=== PATIENT | male | born 1955 | race African-American/Black ===

== ENCOUNTER → 2017-01-10 | Outpatient (CLI) | payer MEDICARE ==
[~2017-01-10] MED LIST: ASPI-864; DICL75TA5 PO; DIPH25CA83 PO; FAMO40TA35 PO; GABA-290 PO; GLIP10TA72; HYDR-523 PO; INSU100C3 SQ; INSU3INS6 SUBCUT; NEBI5TAB3 PO; P20 PO; SIMV40TA5 PO; SITA1TAB8 PO; TRAM50TA3 PO
== END | disposition home or self-care (01) ==
LOC: RAD 12:15
PROVIDERS: ATTEND Neurological Surgery
DX: M54.9 Dorsalgia, unspecified (principal)
CPT/HCPCS: 72114

== ENCOUNTER 2017-06-27 15:26 | Inpatient (IN) | payer MEDICARE, MEDICAID ==
[~2017-06-27] VITALS: Ht 203.2 cm; Wt 134.7 kg
[~2017-06-27 15:26] MED LIST changes: -FAMO40TA35 PO; +FAMO40TA70 PO; +GLIP10TA3; -GLIP10TA72; +IOHEXOL-350 100 ML BOTTLE ONE; +SODIUM CHLORIDE 0.9% 10ML VIAL ONE
[2017-06-27] MEDS ORDERED: ALBUTEROL (0.083%) 2.5MG/3ML NEB HHN STA (17:32)
[2017-06-27] MEDS ORDERED: NITROGLYCERIN OINT 1GM/INCH UDPKT TD ONE (17:45)
[2017-06-27] MEDS ORDERED: FUROSEMIDE 40MG/4ML VIAL IV ONE (17:45)
[2017-06-27] MEDS ORDERED: ASPIRIN 81MG TABLET PO ONE (17:45)
[2017-06-27 17:49] LABS: BASOPHILS % 0.7 % (0.0-2.0); EOSINOPHILS % 1.6 % (0.0-5.0); HEMATOCRIT. 41.7 % (42.0-52.0); HEMOGLOBIN. 13.8 g/dL (14.0-18.0); LYMPHOCYTES % 24.9 % (20.0-50.0); MEAN CORPUSCULAR HEMOGLOBIN 27.9 pg (28.0-32.0); MEAN CORPUSCULAR VOLUME 84.4 fL (80.0-94.0); MEAN PLATELET VOLUME 9.2 fl (7.4-10.4); MONOCYTES % 7.2 % (2.0-8.0); NEUTROPHILS % 65.6 % (40.0-76.0); PLATELET 200 x1000/uL (130-400); RED BLOOD CELL COUNT 4.94 mill/uL (4.7-6.1); RED CELL DISTRIBUTION WIDTH 15.3 % (11.6-14.6)
[2017-06-27 17:57] LABS: CHLORIDE 103 mEq/L (98-107)
[2017-06-27 17:59] LABS: D-DIMER 0.93 mg/L FEU (<0.50); PROTHROMBIN TIME 10.7 sec (9.4-11.6)
[2017-06-27 18:01] LABS: CARBON DIOXIDE 28 mEq/L (21-32)
[2017-06-27 18:03] LABS: ETHANOL BLOOD < 10 mg/dL
[2017-06-27 18:09] LABS: TROPONIN I < 0.02 ng/mL (0.00-0.04)
[2017-06-27 19:00] LABS: *AMPHETAMINES SCREEN URINE NEGATIVE (NEGATIVE); *BARBITURATES SCREEN URINE NEGATIVE (NEGATIVE); *BENZODIAZEPINES SCREEN URINE NEGATIVE (NEGATIVE); *COCAINE SCREEN URINE NEGATIVE (NEGATIVE); CANNABINOID URINE SCREEN NEGATIVE (NEGATIVE); METHADONE URINE SCREEN NEGATIVE (NEGATIVE); OPIATES URINE SCREEN PRESUMTIVE POSITIVE (NEGATIVE); PHENCYCLIDINE URINE SCREEN NEGATIVE (NEGATIVE)
[2017-06-27] MEDS ORDERED: LINA5TAB PO (23:51)
[2017-06-27 23:53] VITALS: BP 115/76
[2017-06-28] VITALS (12 sets, daily range): BP systolic 90–154; BP diastolic 40–97
[2017-06-28] MEDS ORDERED: MAGNESIUM 2 G PREMIX 50 ML IV PRN (00:15)
[2017-06-28] MEDS ORDERED: TRAMADOL 50MG TABLET PO PRN (00:15)
[2017-06-28] MEDS ORDERED: HYDROCODONE/ACETAMINOPHEN 5/325MG TABLET PO PRN (00:15)
[2017-06-28] MEDS ORDERED: DEXTROSE 50% WATER 50ML SYRINGE IV PRN (03:15)
[2017-06-28] MEDS: BLOOD SUGAR DIAGNOSTIC STRIP TEST SCH ×4 (07:02→21:33)
[2017-06-28] MEDS: INSULIN LISPRO 100 UNITS/ML SUBCUT SCH ×4 (08:33→21:29)
[2017-06-28] MEDS: ASPIRIN 81MG EC TABLET PO SCH (08:34)
[2017-06-28] MEDS: ENOXAPARIN 40MG/0.4ML SYR SUBCUT SCH ×2 (08:35→21:29)
[2017-06-28] MEDS: NEBIVOLOL HCL 5 MG TABLET PO SCH (08:35)
[2017-06-28] MEDS ORDERED: MEDICATION NOT ON FORMULARY EA (Gabapentin 1,200 MG) PO SCH (09:00)
[2017-06-28] MEDS: GABAPENTIN 400MG CAPSULE PO SCH ×2 (10:20→16:48)
[2017-06-28] MEDS: DICLOFENAC SODIUM 75MG DR (EC) TABLET PO SCH ×2 (10:20→16:48)
[2017-06-28] MEDS: LINAGLIPTIN 5MG TABLET PO SCH (10:20)
[2017-06-28] MEDS ORDERED: IPRATROPIUM/ALBUTEROL 0.5-3(2.5)MG/3ML NEB HHN PRN (12:30)
[2017-06-28] MEDS ORDERED: [UNRECOGNIZED DRUG - OTHER] SUBCUT SCH (17:00)
[2017-06-28] MEDS ORDERED: INSULIN GLARGINE HUM REC ANLOG 24 UNIT SUBCUT SCH (17:00)
[2017-06-28] MEDS ORDERED: MEDICATION NOT ON FORMULARY EA (Simvastatin 40 MG) PO SCH (18:00)
[2017-06-28] MEDS: ATORVASTATIN CALCIUM 20MG TABLET PO SCH (21:29)
[2017-06-28] MEDS ORDERED: INSULIN DETEMIR UD 100 UNITS/ML SYR SUBCUT SCH ×2 (22:00)
[2017-06-29] VITALS (11 sets, daily range): BP systolic 107–154; BP diastolic 44–88
[2017-06-29] MEDS: BLOOD SUGAR DIAGNOSTIC STRIP TEST SCH ×4 (06:27→21:07)
[2017-06-29] MEDS: GLIMEPIRIDE 2MG TABLET PO SCH ×2 (06:31→17:02)
[2017-06-29] MEDS: INSULIN LISPRO 100 UNITS/ML SUBCUT SCH ×7 (06:33→21:06)
[2017-06-29] MEDS: NEBIVOLOL HCL 5 MG TABLET PO SCH (08:27)
[2017-06-29] MEDS: DICLOFENAC SODIUM 75MG DR (EC) TABLET PO SCH ×2 (08:27→17:00)
[2017-06-29] MEDS: FUROSEMIDE 40MG/4ML VIAL IVP SCH (08:27)
[2017-06-29] MEDS: LINAGLIPTIN 5MG TABLET PO SCH (08:27)
[2017-06-29] MEDS: ASPIRIN 81MG EC TABLET PO SCH (08:27)
[2017-06-29] MEDS: ENOXAPARIN 40MG/0.4ML SYR SUBCUT SCH ×2 (08:28→21:05)
[2017-06-29] MEDS: GABAPENTIN 400MG CAPSULE PO SCH ×2 (08:28→17:00)
[2017-06-29] MEDS ORDERED: INSULIN DETEMIR UD 100 UNITS/ML SYR SUBCUT NR (10:00)
[2017-06-29] MEDS ORDERED: CLONIDINE 0.2MG TABLET PO PRN ×2 (10:45)
[2017-06-29] MEDS ORDERED: REGADENOSON 0.4 MG/5 ML IV SCH (10:45)
[2017-06-29 11:35] LABS: BASOPHILS % 0.6 % (0.0-2.0); EOSINOPHILS % 2.2 % (0.0-5.0); HEMATOCRIT. 43.6 % (42.0-52.0); HEMOGLOBIN. 14.8 g/dL (14.0-18.0); LYMPHOCYTES % 29.3 % (20.0-50.0); MEAN CORPUSCULAR VOLUME 85.5 fL (80.0-94.0); MEAN PLATELET VOLUME 8.8 fl (7.4-10.4); MONOCYTES % 7.9 % (2.0-8.0); PLATELET 198 x1000/uL (130-400)
[2017-06-29 11:39] LABS: CARBON DIOXIDE 28 mEq/L (21-32); CHLORIDE 99 mEq/L (98-107); CREATINE KINASE 202 IU/L (39-308); CREATINE KINASE MB FRACTION 1.8 ng/mL (0.5-3.6); TROPONIN I < 0.02 ng/mL (0.00-0.04)
[2017-06-29] MEDS: ATORVASTATIN CALCIUM 20MG TABLET PO SCH (21:05)
[2017-06-29] MEDS ORDERED: INSULIN DETEMIR UD 100 UNITS/ML SYR SUBCUT SCH (22:00)
[2017-06-30] VITALS (9 sets, daily range): BP systolic 114–146; BP diastolic 54–83
[2017-06-30] MEDS: INSULIN LISPRO 100 UNITS/ML SUBCUT SCH ×4 (06:13→12:16)
[2017-06-30] MEDS: GLIMEPIRIDE 2MG TABLET PO SCH (06:14)
[2017-06-30] MEDS: BLOOD SUGAR DIAGNOSTIC STRIP TEST SCH ×2 (06:14→12:13)
[2017-06-30 06:27] LABS: BASOPHILS % 0.5 % (0.0-2.0); EOSINOPHILS % 2.8 % (0.0-5.0); HEMATOCRIT. 41.7 % (42.0-52.0); HEMOGLOBIN. 13.9 g/dL (14.0-18.0); LYMPHOCYTES % 31.2 % (20.0-50.0); MEAN CORPUSCULAR HEMOGLOBIN 28.3 pg (28.0-32.0); MEAN CORPUSCULAR VOLUME 84.9 fL (80.0-94.0); MEAN PLATELET VOLUME 8.6 fl (7.4-10.4); MONOCYTES % 8.6 % (2.0-8.0); NEUTROPHILS % 56.9 % (40.0-76.0); PLATELET 212 x1000/uL (130-400); RED BLOOD CELL COUNT 4.91 mill/uL (4.7-6.1)
[2017-06-30 06:50] LABS: CARBON DIOXIDE 28 mEq/L (21-32); CHLORIDE 98 mEq/L (98-107); CREATINE KINASE 157 IU/L (39-308); HDL CHOLESTEROL 37 mg/dL (40-59); LDL CHOLESTEROL 116 mg/dL (5-100)
[2017-06-30 06:58] LABS: CREATINE KINASE MB FRACTION 1.7 ng/mL (0.5-3.6); TROPONIN I < 0.02 ng/mL (0.00-0.04)
[2017-06-30] MEDS ORDERED: REGADENOSON 0.4 MG/5 ML IV ONE (09:22)
[2017-06-30] MEDS ORDERED: INSULIN DETEMIR UD 100 UNITS/ML SYR SUBCUT SCH ×2 (10:00→22:00)
[2017-06-30] MEDS: FUROSEMIDE 40MG/4ML VIAL IVP SCH (10:36)
[2017-06-30] MEDS: NEBIVOLOL HCL 5 MG TABLET PO SCH (10:37)
[2017-06-30] MEDS: DICLOFENAC SODIUM 75MG DR (EC) TABLET PO SCH (10:37)
[2017-06-30] MEDS: ASPIRIN 81MG EC TABLET PO SCH (10:37)
[2017-06-30] MEDS: GABAPENTIN 400MG CAPSULE PO SCH (10:37)
[2017-06-30] MEDS: ENOXAPARIN 40MG/0.4ML SYR SUBCUT SCH (10:37)
[2017-06-30] MEDS: LINAGLIPTIN 5MG TABLET PO SCH (10:37)
[2017-06-30 13:11] LABS: *CREATININE RANDOM URINE 172.3 mg/dL (Not Estab.); MICROALBUMIN RANDOM URINE 52.5 ug/mL (Not Estab.)
== END 2017-06-30 14:50 | disposition home or self-care (01) | DRG 291 ==
LOC: ER 15:26 → EDBEDREQ 17:38 → 3WST 20:58 → ENRESERV 21:12 → EDBEDREQ 21:14 → ER 21:19
PROVIDERS: ADMIT Internal Medicine; ATTEND Internal Medicine
DX: I13.0 Hypertensive heart and chronic kidney disease with heart failure and stage 1 through stage 4 chronic kidney disease, or unspecified chronic kidney disease (principal); J96.00 Acute respiratory failure, unspecified whether with hypoxia or hypercapnia; I50.21 Acute systolic (congestive) heart failure; I42.0 Dilated cardiomyopathy; J44.9 Chronic obstructive pulmonary disease, unspecified; Z83.3 Family history of diabetes mellitus; E11.22 Type 2 diabetes mellitus with diabetic chronic kidney disease; E11.42 Type 2 diabetes mellitus with diabetic polyneuropathy; E66.01 Morbid (severe) obesity due to excess calories; E78.00 Pure hypercholesterolemia, unspecified; E11.65 Type 2 diabetes mellitus with hyperglycemia; G89.4 Chronic pain syndrome; I44.7 Left bundle-branch block, unspecified; I87.2 Venous insufficiency (chronic) (peripheral); N18.9 Chronic kidney disease, unspecified; M13.0 Polyarthritis, unspecified; Z79.4 Long term (current) use of insulin; Z79.84 Long term (current) use of oral hypoglycemic drugs; Z88.8 Allergy status to other drugs, medicaments and biological substances; Z79.82 Long term (current) use of aspirin; Z79.899 Other long term (current) drug therapy; Z98.1 Arthrodesis status; Z68.32 Body mass index [BMI] 32.0-32.9, adult
CPT/HCPCS: 36415; 71010; 71275; 78452; 80048; 80053; 80061; 80305; 82043; 82550; 82553; 82570; 82962; 83036; 83735; 83880; 84443; 84484; 84681; 85025; 85379; 85610; 93005; 93017; 93306; 93970; 96374; 97116; 97162; 97165; 99285; A4216; A9500; G0482; J1650; J1815; J1940; J2785; Q9967

== ENCOUNTER 2017-07-03 07:01 | Emergency (ER) | payer MEDICARE, MEDICAID ==
[~2017-07-03] VITALS: Ht 185.4 cm; Wt 135.0 kg
[~2017-07-03 07:01] MED LIST changes: -IOHEXOL-350 100 ML BOTTLE ONE; +LINA5TAB PO; -SODIUM CHLORIDE 0.9% 10ML VIAL ONE
[2017-07-03 07:41] VITALS: BP 155/84
== END 2017-07-03 11:02 | disposition home or self-care (01) ==
LOC: ER 08:47
DX: E11.42 Type 2 diabetes mellitus with diabetic polyneuropathy (principal); J44.9 Chronic obstructive pulmonary disease, unspecified; I50.9 Heart failure, unspecified; Z98.1 Arthrodesis status; Z79.4 Long term (current) use of insulin; Z88.8 Allergy status to other drugs, medicaments and biological substances
CPT/HCPCS: 82962; 99283

== ENCOUNTER 2018-05-16 14:48 | Inpatient (IN) | payer MEDICARE, MEDICAID ==
[~2018-05-16] VITALS: Ht 185.4 cm; Wt 142.4 kg
[2018-05-16 18:04] LABS: BASOPHILS % 0.7 % (0.0-2.0); EOSINOPHILS % 2.1 % (0.0-5.0); HEMATOCRIT. 40.9 % (42.0-52.0); HEMOGLOBIN. 13.3 g/dL (14.0-18.0); LYMPHOCYTES % 25.4 % (20.0-50.0); MEAN CORPUSCULAR HEMOGLOBIN 27.9 pg (28.0-32.0); MEAN CORPUSCULAR VOLUME 85.8 fL (80.0-94.0); MEAN PLATELET VOLUME 9.5 fl (7.4-10.4); MONOCYTES % 6.5 % (2.0-8.0); NEUTROPHILS % 65.3 % (40.0-76.0); PLATELET 191 x1000/uL (130-400); RED BLOOD CELL COUNT 4.77 mill/uL (4.7-6.1); RED CELL DISTRIBUTION WIDTH 16.3 % (11.6-14.6)
[2018-05-16 18:05] LABS: CHLORIDE 104 mEq/L (98-107)
[2018-05-16 18:06] LABS: INR 1.1
[2018-05-16 18:27] LABS: CLARITY URINE CLEAR (CLEAR); COLOR URINE YELLOW (YELLOW); KETONES URINE NEGATIVE (NEGATIVE); LEUKOCYTE ESTERASE URINE NEGATIVE (NEGATIVE); NITRITE URINE NEGATIVE (NEGATIVE); OCCULT BLOOD URINE NEGATIVE (NEGATIVE); PH URINE 5.5 (4.5-8.0); PROTEIN URINE 2+ (NEGATIVE); SPECIFIC GRAVITY URINE 1.022 (1.005-1.030)
[2018-05-16 18:41] LABS: *AMPHETAMINES SCREEN URINE NEGATIVE (NEGATIVE); *BARBITURATES SCREEN URINE NEGATIVE (NEGATIVE); *BENZODIAZEPINES SCREEN URINE NEGATIVE (NEGATIVE); *COCAINE SCREEN URINE NEGATIVE (NEGATIVE); METHADONE URINE SCREEN NEGATIVE (NEGATIVE)
[2018-05-16 18:42] LABS: CANNABINOID URINE SCREEN NEGATIVE (NEGATIVE); OPIATES URINE SCREEN NEGATIVE (NEGATIVE); PHENCYCLIDINE URINE SCREEN NEGATIVE (NEGATIVE)
[2018-05-17] MEDS ORDERED: MAGNESIUM HYDROXIDE 400MG/5ML 30ML UDC PO PRN (01:15)
[2018-05-17] MEDS ORDERED: ACETAMINOPHEN 325MG TABLET PO PRN (01:15)
[2018-05-17] MEDS ORDERED: MAGNESIUM/ALUMINUM HYDROXIDE/SIMETHICONE 30ML UDC PO PRN (01:15)
[2018-05-17] MEDS ORDERED: CLONIDINE 0.1MG TABLET PO PRN (01:15)
[2018-05-17] MEDS ORDERED: GUAIFENESIN 200MG/10ML SUGAR FREE UDC PO PRN (01:15)
[2018-05-17] MEDS ORDERED: LORAZEPAM 0.5MG TABLET PO PRN (01:15)
[2018-05-17] MEDS ORDERED: ONDANSETRON 4MG ODT PO PRN (01:15)
[2018-05-17] MEDS ORDERED: DEXTROSE 50% WATER 50ML SYRINGE IV PRN (01:15)
[2018-05-17] MEDS ORDERED: IPRATROPIUM/ALBUTEROL 0.5-3(2.5)MG/3ML NEB INH PRN (01:15)
[2018-05-17 04:13] VITALS: BP 167/91
[2018-05-17] MEDS: BLOOD SUGAR DIAGNOSTIC STRIP TEST SCH ×4 (05:56→21:27)
[2018-05-17] MEDS: HYDRALAZINE HCL 25MG TABLET PO SCH ×3 (05:57→21:32)
[2018-05-17] MEDS: SODIUM CHLORIDE 0.9% INJ 3ML FLUSH IVF SCH ×3 (05:57→21:36)
[2018-05-17] MEDS: GLIMEPIRIDE 2MG TABLET PO SCH ×2 (06:00→17:32)
[2018-05-17] MEDS: INSULIN LISPRO 100 UNITS/ML SUBCUT SCH ×4 (07:51→21:35)
[2018-05-17 08:02] VITALS: BP 129/69
[2018-05-17] MEDS: FUROSEMIDE 40MG/4ML VIAL IVP SCH ×2 (08:02→17:32)
[2018-05-17] MEDS: LOSARTAN POTASSIUM 25 MG TABLET PO SCH (08:03)
[2018-05-17] MEDS: ENOXAPARIN 40MG/0.4ML SYR SUBCUT SCH ×2 (08:03→21:32)
[2018-05-17] MEDS: FAMOTIDINE 20MG TABLET PO SCH ×2 (08:03→21:32)
[2018-05-17] MEDS: LINAGLIPTIN 5MG TABLET PO SCH (08:03)
[2018-05-17 11:45] VITALS: BP 152/80
[2018-05-17 16:00] VITALS: BP 139/69
[2018-05-17 20:00] VITALS: BP 147/82
[2018-05-17] MEDS ORDERED: INSULIN GLARGINE UD 100 UNITS/ML SYR SUBCUT SCH ×2 (22:00)
[2018-05-18] VITALS: BP 131/77
[2018-05-18] MEDS: TEMAZEPAM 15MG CAPSULE PO PRN ×2 (03:33→22:03)
[2018-05-18] MEDS: DIPHENHYDRAMINE 50MG/ML VIAL IV PRN ×2 (03:33→22:13)
[2018-05-18] MEDS: INSULIN LISPRO 100 UNITS/ML SUBCUT SCH ×7 (06:18→21:08)
[2018-05-18] MEDS: GLIMEPIRIDE 2MG TABLET PO SCH ×2 (06:20→18:27)
[2018-05-18] MEDS: HYDRALAZINE HCL 25MG TABLET PO SCH ×3 (06:21→21:07)
[2018-05-18] MEDS: BLOOD SUGAR DIAGNOSTIC STRIP TEST SCH ×4 (06:21→21:05)
[2018-05-18] MEDS: SODIUM CHLORIDE 0.9% INJ 3ML FLUSH IVF SCH ×3 (06:21→21:06)
[2018-05-18 07:20] LABS: BASOPHILS % 0.5 % (0.0-2.0); EOSINOPHILS % 2.2 % (0.0-5.0); HEMATOCRIT. 41.4 % (42.0-52.0); HEMOGLOBIN. 13.7 g/dL (14.0-18.0); LYMPHOCYTES % 29.8 % (20.0-50.0); MEAN CORPUSCULAR HEMOGLOBIN 28.1 pg (28.0-32.0); MONOCYTES % 9.3 % (2.0-8.0); NEUTROPHILS % 58.2 % (40.0-76.0); PLATELET 205 x1000/uL (130-400); RED BLOOD CELL COUNT 4.87 mill/uL (4.7-6.1); RED CELL DISTRIBUTION WIDTH 15.8 % (11.6-14.6)
[2018-05-18 08:00] VITALS: BP 123/64
[2018-05-18 08:42] LABS: CHLORIDE 97 mEq/L (98-107)
[2018-05-18] MEDS: FAMOTIDINE 20MG TABLET PO SCH ×2 (08:58→21:07)
[2018-05-18] MEDS: FUROSEMIDE 40MG/4ML VIAL IVP SCH ×2 (08:58→18:27)
[2018-05-18] MEDS: LOSARTAN POTASSIUM 25 MG TABLET PO SCH (08:58)
[2018-05-18] MEDS: LINAGLIPTIN 5MG TABLET PO SCH (08:58)
[2018-05-18] MEDS: ENOXAPARIN 40MG/0.4ML SYR SUBCUT SCH ×2 (08:59→21:06)
[2018-05-18 12:00] VITALS: BP 139/77
[2018-05-18 16:00] VITALS: BP 141/72
[2018-05-18 20:00] VITALS: BP_SYST 111; BP_SYST 132; BP_SYST 134; BP_DIAS 63; BP_DIAS 67; BP_DIAS 72
[2018-05-18] MEDS ORDERED: INSULIN GLARGINE UD 100 UNITS/ML SYR SUBCUT SCH (22:00)
[2018-05-19] VITALS: BP 149/62
[2018-05-19 04:00] VITALS: BP 132/72
[2018-05-19] MEDS: GLIMEPIRIDE 2MG TABLET PO SCH (06:31)
[2018-05-19] MEDS: HYDRALAZINE HCL 25MG TABLET PO SCH ×2 (06:31→17:22)
[2018-05-19] MEDS: BLOOD SUGAR DIAGNOSTIC STRIP TEST SCH ×2 (06:31→11:45)
[2018-05-19] MEDS: INSULIN LISPRO 100 UNITS/ML SUBCUT SCH ×4 (06:42→13:03)
[2018-05-19] MEDS: SODIUM CHLORIDE 0.9% INJ 3ML FLUSH IVF SCH ×2 (06:56→13:58)
[2018-05-19 07:58] LABS: BASOPHILS % 0.5 % (0.0-2.0); EOSINOPHILS % 1.6 % (0.0-5.0); HEMOGLOBIN. 14.5 g/dL (14.0-18.0); MEAN CORPUSCULAR HEMOGLOBIN 28.1 pg (28.0-32.0); MEAN CORPUSCULAR VOLUME 85.1 fL (80.0-94.0); MONOCYTES % 10.2 % (2.0-8.0); NEUTROPHILS % 59.7 % (40.0-76.0); PLATELET 215 x1000/uL (130-400); RED BLOOD CELL COUNT 5.17 mill/uL (4.7-6.1); RED CELL DISTRIBUTION WIDTH 15.7 % (11.6-14.6)
[2018-05-19 08:00] VITALS: BP_SYST 125; BP_SYST 132; BP_SYST 136; BP_DIAS 57; BP_DIAS 75; BP_DIAS 77
[2018-05-19] MEDS ORDERED: IBUPROFEN 600MG TABLET PO PRN (08:30)
[2018-05-19 08:54] LABS: CHLORIDE 98 mEq/L (98-107)
[2018-05-19] MEDS: FAMOTIDINE 20MG TABLET PO SCH (09:16)
[2018-05-19] MEDS: FUROSEMIDE 40MG/4ML VIAL IVP SCH (09:16)
[2018-05-19] MEDS: LOSARTAN POTASSIUM 25 MG TABLET PO SCH (09:16)
[2018-05-19] MEDS: ENOXAPARIN 40MG/0.4ML SYR SUBCUT SCH (09:23)
[2018-05-19] MEDS: LINAGLIPTIN 5MG TABLET PO SCH (09:23)
[2018-05-19 12:00] VITALS: BP 134/70
[2018-05-19 15:28] VITALS: BP 134/70
[2018-05-19 16:00] VITALS: BP 131/83
[2018-05-19] MEDS ORDERED: INSULIN LISPRO 100 UNITS/ML SUBCUT SCH (16:45)
[2018-05-19] MEDS ORDERED: INSULIN GLARGINE UD 100 UNITS/ML SYR SUBCUT SCH (22:00)
== END 2018-05-19 18:10 | disposition home health service (06) | DRG 73 ==
LOC: ER 14:48 → EDBEDREQ 23:24 → 5WST 05-17 00:44 → EDBEDREQ 05-17 00:50 → EDBEDREQDT 05-17 00:50 → EDBEDREQTM 05-17 00:50 → ENRESERV 05-17 02:07
PROVIDERS: ADMIT Internal Medicine; ATTEND Internal Medicine
DX: G90.8 Other disorders of autonomic nervous system (principal); N17.0 Acute kidney failure with tubular necrosis; I50.22 Chronic systolic (congestive) heart failure; I42.9 Cardiomyopathy, unspecified; Z68.41 Body mass index [BMI] 40.0-44.9, adult; E11.42 Type 2 diabetes mellitus with diabetic polyneuropathy; E11.649 Type 2 diabetes mellitus with hypoglycemia without coma; E66.01 Morbid (severe) obesity due to excess calories; E78.5 Hyperlipidemia, unspecified; I11.0 Hypertensive heart disease with heart failure; I25.10 Atherosclerotic heart disease of native coronary artery without angina pectoris; I44.7 Left bundle-branch block, unspecified; J44.9 Chronic obstructive pulmonary disease, unspecified; Z88.8 Allergy status to other drugs, medicaments and biological substances; E88.81 Metabolic syndrome and other insulin resistance; I87.309 Chronic venous hypertension (idiopathic) without complications of unspecified lower extremity; Y99.8 Other external cause status; I25.2 Old myocardial infarction; Z79.4 Long term (current) use of insulin; Z83.3 Family history of diabetes mellitus; W07.XXXA Fall from chair, initial encounter; Y93.89 Activity, other specified; Y92.89 Other specified places as the place of occurrence of the external cause
CPT/HCPCS: 36415; 70450; 71045; 80048; 80053; 80305; 81003; 82962; 83036; 83880; 84484; 85025; 85610; 93005; 93306; 93970; 97161; 99285; J1200; J1650; J1815; J1940; Q0162

== ENCOUNTER 2018-12-04 07:04 | Day surgery (SDC) | payer MEDICARE, MEDICAID ==
[~2018-12-04] VITALS: Ht 185.4 cm; Wt 147.0 kg
[~2018-12-04 07:04] MED LIST changes: +BALANCED SALT IRRIG SOLN COMB1 500ML OP ONE; -HYDR-523 PO
[2018-12-04] MEDS ORDERED: PHENYLEPHRINE HCL 10% OPHTH DROPS 5ML RIGHTEYE NR (07:45)
[2018-12-04] MEDS ORDERED: CYCLOPENTOLATE HCL 1% OPHTH DROPS 2ML RIGHTEYE NR (07:45)
[2018-12-04] MEDS ORDERED: TROPICAMIDE 1% OPHTH DROPS 15ML RIGHTEYE NR (07:45)
[2018-12-04] MEDS ORDERED: INSULIN REGULAR (HUMULIN R) 300UNITS/3ML SUBCUT NR (08:23)
[2018-12-04] MEDS ORDERED: CARV6.2548 PO (09:40)
[2018-12-04] MEDS ORDERED: MIDAZOLAM HCL 2 MG/2 ML VIAL ONE (10:09)
[2018-12-04] MEDS ORDERED: HYALURONATE SODIUM 14 MG/ML 0.85ML SYRINGE IO ONE (10:54)
[2018-12-04] MEDS ORDERED: CYCLOPENTOLATE HCL 1% OPHTH DROPS 2ML ONE (13:29)
[2018-12-04] MEDS ORDERED: NEO/POLYMYX B SULF/DEXAMETH OPHTH OINT 3.5GM ONE (13:29)
[2018-12-04] MEDS ORDERED: LIDOCAINE HCL 2%/EPINEPHRINE 1:100,000 20 ML VIAL INFIL ONE (13:29)
[2018-12-04] MEDS ORDERED: TROPICAMIDE 1% OPHTH DROPS 15ML ONE (13:29)
[2018-12-04] MEDS ORDERED: TETRACAINE 0.5% OPHTH DROPS 4ML ONE (13:29)
[2018-12-04] MEDS ORDERED: PREDNISOLONE ACETATE 1% OPHTH DROPS 1ML ONE (13:29)
[2018-12-04] MEDS ORDERED: CIPROFLOXACIN 0.3% OPHTH SOLN 2.5ML ONE (13:29)
[2018-12-04] MEDS ORDERED: BALANCED SALT IRRIG SOLN 15ML ONE (13:29)
[2018-12-04] MEDS ORDERED: PHENYLEPHRINE HCL 10% OPHTH DROPS 5ML ONE (13:29)
[2018-12-04] MEDS ORDERED: BUPIVACAINE HCL/PF 0.75% (7.5MG/ML) 10ML ONE (13:29)
== END 2018-12-04 11:35 | disposition home or self-care (01) ==
LOC: OR 07:04
PROVIDERS: ATTEND Ophthalmology
DX: H25.89 Other age-related cataract (principal); I13.10 Hypertensive heart and chronic kidney disease without heart failure, with stage 1 through stage 4 chronic kidney disease, or unspecified chronic kidney disease; E11.22 Type 2 diabetes mellitus with diabetic chronic kidney disease; N18.9 Chronic kidney disease, unspecified; I50.9 Heart failure, unspecified; J44.9 Chronic obstructive pulmonary disease, unspecified; I42.9 Cardiomyopathy, unspecified; G47.30 Sleep apnea, unspecified; Z95.810 Presence of automatic (implantable) cardiac defibrillator; E66.01 Morbid (severe) obesity due to excess calories
CPT/HCPCS: 66984; 82962; J2250; J3490; V2632; J1815

== ENCOUNTER → 2019-12-12 | Outpatient (CLI) | payer MEDICARE, MEDICAID ==
[~2019-12-12] MED LIST changes: -BALANCED SALT IRRIG SOLN COMB1 500ML OP ONE; +CARV6.2548 PO; +COR6 PO; +DULA1.5P SQ; +FURO20TA4 PO; +FURO40TA5 PO; +GABA-531 PO; +GLIM2TAB30 PO; +HYDR-4001 PO; +HYDR-4135 PO; +INSHUMSS SUBCUT; +SIMV-46 PO; -SIMV40TA5 PO
== END | disposition home or self-care (01) ==
LOC: MRI 13:37
PROVIDERS: ATTEND Neurological Surgery
DX: M47.812 Spondylosis without myelopathy or radiculopathy, cervical region (principal); M48.02 Spinal stenosis, cervical region; M48.8X2 Other specified spondylopathies, cervical region
CPT/HCPCS: 72141

== ENCOUNTER → 2020-01-22 | Outpatient (CLI) | payer MEDICARE, MEDICAID ==
[~2020-01-22] MED LIST changes: -COR6 PO; -DULA1.5P SQ; -FURO20TA4 PO; -FURO40TA5 PO; -GABA-531 PO; -GLIM2TAB30 PO; -HYDR-4001 PO; -HYDR-4135 PO; -INSHUMSS SUBCUT
== END | disposition home or self-care (01) ==
LOC: RAD 11:32
PROVIDERS: ATTEND Internal Medicine Nephrology
DX: R91.8 Other nonspecific abnormal finding of lung field (principal); Z95.810 Presence of automatic (implantable) cardiac defibrillator
CPT/HCPCS: 71045

== ENCOUNTER 2020-01-27 05:40 | Inpatient (IN) | payer MEDICARE, MEDICAID ==
[2020-01-27] VITALS (60 sets, daily range): BP systolic 103–153; BP diastolic 17–100
[~2020-01-27] VITALS: Ht 182.9 cm; Wt 136.1 kg
[2020-01-27] MEDS ORDERED: NORMAL SALINE 0.9% 10 ML SYR ONE (06:22)
[2020-01-27] MEDS ORDERED: THROMBIN (BOVINE) 5000 UNITS/VIAL TOP ONE (06:22)
[2020-01-27] MEDS ORDERED: BACITRACIN 50,000 UNITS/VIAL ONE (06:23)
[2020-01-27] MEDS ORDERED: LIDOCAINE HCL/EPINEPHRINE 1%-EPI 1:100,000 20 ML VIAL ONE (06:23)
[2020-01-27 06:39] LABS: BASOPHILS % 0.6 % (0.0-2.0); EOSINOPHILS % 1.6 % (0.0-5.0); HEMATOCRIT. 43.8 % (42.0-52.0); HEMOGLOBIN. 14.5 g/dL (14.0-18.0); LYMPHOCYTES % 28.8 % (20.0-50.0); MEAN CORPUSCULAR HEMOGLOBIN 28.6 pg (28.0-32.0); MEAN CORPUSCULAR VOLUME 86.4 fL (80.0-94.0); MEAN PLATELET VOLUME 8.7 fl (7.4-10.4); MONOCYTES % 6.5 % (2.0-8.0); NEUTROPHILS % 62.5 % (40.0-76.0); PLATELET 183 x1000/uL (130-400); RED BLOOD CELL COUNT 5.07 mill/uL (4.7-6.1); RED CELL DISTRIBUTION WIDTH 15.5 % (11.6-14.6)
[2020-01-27 06:42] LABS: CLARITY URINE CLEAR (CLEAR); COLOR URINE YELLOW (YELLOW); KETONES URINE TRACE (NEGATIVE); LEUKOCYTE ESTERASE URINE NEGATIVE (NEGATIVE); NITRITE URINE NEGATIVE (NEGATIVE); OCCULT BLOOD URINE NEGATIVE (NEGATIVE); PROTEIN URINE 3+ (NEGATIVE); SPECIFIC GRAVITY URINE 1.024 (1.005-1.030)
[2020-01-27 06:46] LABS: PARTIAL THROMBOPLASTIN TIME 29.6 sec (23.4-31.0)
[2020-01-27 06:47] LABS: CHLORIDE 105 mEq/L (98-107)
[2020-01-27] MEDS ORDERED: DEXT 5%/LACTATED RINGERS 1,000 ML IV SCH (07:15)
[2020-01-27] MEDS ORDERED: DULA1.5P SQ (08:27)
[2020-01-27] MEDS ORDERED: FURO20TA4 PO (08:29)
[2020-01-27] MEDS ORDERED: HYDR-4135 PO (08:29)
[2020-01-27] MEDS ORDERED: GLIM2TAB30 PO (08:29)
[2020-01-27] MEDS ORDERED: INSHUMSS SUBCUT (08:30)
[2020-01-27] MEDS ORDERED: ONDANSETRON HCL 4MG/2ML INJ IV PRN (08:45)
[2020-01-27] MEDS ORDERED: MEPERIDINE HCL/PF 25MG/ML CPJ IV PRN (08:45)
[2020-01-27] MEDS ORDERED: HYDROMORPHONE HCL/PF 2MG/ML CPJ IV PRN (08:45)
[2020-01-27] MEDS ORDERED: LABETALOL 5MG/ML SYR 20 MG/4 ML SYRINGE IV PRN (08:45)
[2020-01-27] MEDS: NICARDIPINE 100 MG in SODIUM CHLORIDE 0.9% 60 ML IV PRN ×2 (09:33→18:31)
[2020-01-27] MEDS: MORPHINE SULFATE 2 MG/ML CPJ (NOT FOR IM USE) IV PRN ×3 (10:08→18:29)
[2020-01-27 10:44] LABS: BG BASE EXCESS -3.1 mmol/L (-2.0-2.0); BG CARBOXYHEMOGLOBIN 0.5 % (0.5-1.5); BG DEOXYHEMOGLOBIN 1.9 % (0.0-5.0); BG FRACTION INSPIRED OXYGEN 50; BG HCO3 ACT 23.2 mmol/L (22.0-26.0); BG METHEMOGLOBIN 0.1 % (0.0-1.5); BG OXYGEN SATURATION 98.1 % (92.0-98.5); BG OXYHEMOGLOBIN 97.5 % (94.0-97.0); BG PCO2 46.5 mmHg (35.0-45.0); BG PH 7.316 (7.350-7.450); BG PO2 114.6 mmHg (75.0-100.0); BG PRESSURE SUPPORT 8; BG SAMPLE SITE RIGHT RADIAL; BG TOTAL HEMOGLOBIN 13.9 g/dL (12.0-18.0); BG VENT MODE VENT - CPAP
[2020-01-27] MEDS: POTASSIUM CHLORIDE 20MEQ/PACKET PO SCH (11:45)
[2020-01-27] MEDS ORDERED: DEXTROSE 50% WATER 50ML SYRINGE IV PRN (12:00)
[2020-01-27] MEDS ORDERED: NALOXONE INJ IV PRN (12:30)
[2020-01-27] MEDS ORDERED: ONDANSETRON INJ IV PRN (12:30)
[2020-01-27] MEDS ORDERED: MORPHINE PCA 50MG/50ML IV PRN (12:30)
[2020-01-27] MEDS ORDERED: DIPHENHYDRAMINE INJ IV PRN (12:30)
[2020-01-27] MEDS: AMLODIPINE 5MG TABLET NG SCH ×2 (13:00→20:16)
[2020-01-27] MEDS: DEXAMETHASONE 4MG/ML 1ML VIAL IV SCH ×3 (13:01→23:40)
[2020-01-27] MEDS: FUROSEMIDE 40MG/4ML VIAL IVP SCH ×2 (13:01→20:19)
[2020-01-27] MEDS: INSULIN LISPRO 100 UNITS/ML SUBCUT SCH ×3 (13:02→20:28)
[2020-01-27] MEDS: CEFAZOLIN 1000MG PREMIX 50 ML IV SCH ×2 (13:34→21:56)
[2020-01-27] MEDS ORDERED: CEFAZOLIN SODIUM 1000MG/VIAL IV SCH (14:00)
[2020-01-27] MEDS ORDERED: INFLUENZA VIRUS VACCINE(AFLURIA) 0.5ML SYR IM ONE (16:00)
[2020-01-27] MEDS ORDERED: PNEUMOCOCCAL 23-VAL P-SAC VAC 0.5 ML IM ONE (16:00)
[2020-01-27] MEDS: BLOOD SUGAR DIAGNOSTIC STRIP TEST SCH ×2 (16:30→20:17)
[2020-01-28] VITALS (67 sets, daily range): BP systolic 99–167; BP diastolic 50–97
[2020-01-28] MEDS: NICARDIPINE 100 MG in SODIUM CHLORIDE 0.9% 60 ML IV PRN (03:53)
[2020-01-28] MEDS: CEFAZOLIN 1000MG PREMIX 50 ML IV SCH ×2 (05:21→13:21)
[2020-01-28] MEDS: DEXAMETHASONE 4MG/ML 1ML VIAL IV SCH ×2 (05:21→11:44)
[2020-01-28 05:34] LABS: BASOPHILS % 0.1 % (0.0-2.0); HEMATOCRIT. 41.1 % (42.0-52.0); HEMOGLOBIN. 13.6 g/dL (14.0-18.0); LYMPHOCYTES % 10.8 % (20.0-50.0); MEAN CORPUSCULAR HEMOGLOBIN 28.3 pg (28.0-32.0); MEAN CORPUSCULAR VOLUME 85.4 fL (80.0-94.0); MEAN PLATELET VOLUME 8.9 fl (7.4-10.4); MONOCYTES % 1.6 % (2.0-8.0); NEUTROPHILS % 87.5 % (40.0-76.0); PLATELET 191 x1000/uL (130-400); RED BLOOD CELL COUNT 4.81 mill/uL (4.7-6.1); RED CELL DISTRIBUTION WIDTH 15.7 % (11.6-14.6)
[2020-01-28] MEDS: BLOOD SUGAR DIAGNOSTIC STRIP TEST SCH ×5 (06:11→21:00)
[2020-01-28] MEDS: INSULIN LISPRO 100 UNITS/ML SUBCUT SCH ×4 (06:18→21:55)
[2020-01-28] MEDS: POTASSIUM CHLORIDE 20MEQ/PACKET PO SCH (07:58)
[2020-01-28] MEDS: AMLODIPINE 5MG TABLET NG SCH ×2 (08:00→21:36)
[2020-01-28] MEDS: FUROSEMIDE 40MG/4ML VIAL IVP SCH ×2 (08:00→18:15)
[2020-01-28] MEDS ORDERED: CARVEDILOL 6.25 MG TABLET PO SCH (10:00)
[2020-01-28] MEDS: HYDRALAZINE HCL 50MG TABLET PO SCH ×2 (11:54→21:25)
[2020-01-28] MEDS: CARVEDILOL 6.25 MG TABLET PO SCH (21:27)
[2020-01-28] MEDS: INSULIN GLARGINE UD 100 UNITS/ML SYR SUBCUT SCH (22:04)
[2020-01-29] VITALS: BP 134/69
[2020-01-29 02:00] VITALS: BP 124/72
[2020-01-29 04:00] VITALS: BP 128/71
[2020-01-29] MEDS: HYDRALAZINE HCL 50MG TABLET PO SCH ×3 (05:14→20:40)
[2020-01-29 06:00] VITALS: BP 132/76
[2020-01-29 06:11] LABS: BASOPHILS % 0.1 % (0.0-2.0); HEMATOCRIT. 41.4 % (42.0-52.0); HEMOGLOBIN. 13.8 g/dL (14.0-18.0); LYMPHOCYTES % 8.7 % (20.0-50.0); MEAN CORPUSCULAR HEMOGLOBIN 28.6 pg (28.0-32.0); MEAN CORPUSCULAR VOLUME 85.5 fL (80.0-94.0); MEAN PLATELET VOLUME 8.8 fl (7.4-10.4); NEUTROPHILS % 88.2 % (40.0-76.0); PLATELET 199 x1000/uL (130-400); RED BLOOD CELL COUNT 4.84 mill/uL (4.7-6.1); RED CELL DISTRIBUTION WIDTH 15.5 % (11.6-14.6)
[2020-01-29 06:20] LABS: CHLORIDE 104 mEq/L (98-107)
[2020-01-29] MEDS: BLOOD SUGAR DIAGNOSTIC STRIP TEST SCH ×4 (07:30→21:00)
[2020-01-29] MEDS: INSULIN LISPRO 100 UNITS/ML SUBCUT SCH ×4 (08:00→20:44)
[2020-01-29] MEDS: AMLODIPINE 5MG TABLET NG SCH ×2 (10:05→20:39)
[2020-01-29] MEDS: CARVEDILOL 6.25 MG TABLET PO SCH ×2 (10:05→20:39)
[2020-01-29] MEDS: FUROSEMIDE 40MG/4ML VIAL IVP SCH ×2 (10:05→16:21)
[2020-01-29] MEDS: POTASSIUM CHLORIDE 20MEQ/PACKET PO SCH (10:05)
[2020-01-29] MEDS: INSULIN GLARGINE UD 100 UNITS/ML SYR SUBCUT SCH ×2 (10:06→21:07)
[2020-01-29] MEDS ORDERED: HYDROCODONE/ACETAMINOPHEN 5/325MG TABLET PO PRN (14:45)
[2020-01-29] MEDS: MORPHINE SULFATE 2 MG/ML CPJ (NOT FOR IM USE) IV PRN (16:21)
[2020-01-29 20:00] VITALS: BP 130/77
[2020-01-29] MEDS: LACTULOSE 20G/30ML UDC PO SCH (20:39)
[2020-01-29] MEDS ORDERED: POLYETHYLENE GLYCOL 3350 (17GM) 1 DOSE PACK PO SCH (21:00)
[2020-01-29 22:00] VITALS: BP 116/69
[2020-01-30] MEDS: MORPHINE SULFATE 2 MG/ML CPJ (NOT FOR IM USE) IV PRN ×2 (02:47→16:52)
[2020-01-30] MEDS: HYDRALAZINE HCL 50MG TABLET PO SCH ×2 (03:52→11:42)
[2020-01-30 06:02] LABS: CHLORIDE 102 mEq/L (98-107)
[2020-01-30] MEDS: BLOOD SUGAR DIAGNOSTIC STRIP TEST SCH ×3 (07:55→16:44)
[2020-01-30 08:00] VITALS: BP 163/88
[2020-01-30] MEDS: FUROSEMIDE 40MG/4ML VIAL IVP SCH ×2 (08:37→16:52)
[2020-01-30] MEDS: POTASSIUM CHLORIDE 20MEQ/PACKET PO SCH (08:38)
[2020-01-30] MEDS: AMLODIPINE 5MG TABLET NG SCH (08:38)
[2020-01-30] MEDS: LACTULOSE 20G/30ML UDC PO SCH ×2 (08:38→13:45)
[2020-01-30] MEDS: CARVEDILOL 6.25 MG TABLET PO SCH (08:38)
[2020-01-30] MEDS: INSULIN LISPRO 100 UNITS/ML SUBCUT SCH ×3 (08:39→18:22)
[2020-01-30] MEDS: INSULIN GLARGINE UD 100 UNITS/ML SYR SUBCUT SCH (10:51)
[2020-01-30 12:00] VITALS: BP 142/70
[2020-01-30] MEDS ORDERED: BISACODYL 10MG SUPP PR PRN (12:00)
[2020-01-30] MEDS ORDERED: NA PHOS,M-B/NA PHOS,DI-BA ENEMA 118ML PR NR (12:00)
[2020-01-30 16:00] VITALS: BP 145/89
[2020-01-30 19:36] VITALS: BP 130/77
[2020-01-30] MEDS ORDERED: DOCUSATE SODIUM 100MG CAPSULE PO SCH (20:00)
[2020-01-30] MEDS ORDERED: INSULIN GLARGINE UD 100 UNITS/ML SYR SUBCUT SCH (22:00)
== END 2020-01-30 23:24 | DRG 471 ==
LOC: OR 05:40 → MICUNO 09:18 → 5EST 01-28 16:15
PROVIDERS: ADMIT Internal Medicine Nephrology; ATTEND Specialist
PROC: 0RG10A0 Fusion of Cervical Vertebral Joint with Interbody Fusion Device, Anterior Approach, Anterior Column, Open Approach (ICD-10-PCS; principal; 2020-01-27)
PROC: 0RB30ZZ Excision of Cervical Vertebral Disc, Open Approach (ICD-10-PCS; 2020-01-27)
PROC: 5A09357 Assistance with Respiratory Ventilation, Less than 24 Consecutive Hours, Continuous Positive Airway Pressure (ICD-10-PCS; 2020-01-27)
DX: M48.02 Spinal stenosis, cervical region (principal); G82.50 Quadriplegia, unspecified; I50.23 Acute on chronic systolic (congestive) heart failure; M47.12 Other spondylosis with myelopathy, cervical region; I42.0 Dilated cardiomyopathy; N17.9 Acute kidney failure, unspecified; Z68.41 Body mass index [BMI] 40.0-44.9, adult; E66.2 Morbid (severe) obesity with alveolar hypoventilation; I42.8 Other cardiomyopathies; M50.01 Cervical disc disorder with myelopathy, high cervical region; R13.10 Dysphagia, unspecified; I11.0 Hypertensive heart disease with heart failure; I44.7 Left bundle-branch block, unspecified; I25.10 Atherosclerotic heart disease of native coronary artery without angina pectoris; G89.4 Chronic pain syndrome; R26.89 Other abnormalities of gait and mobility; R53.81 Other malaise; M53.2X2 Spinal instabilities, cervical region; M47.22 Other spondylosis with radiculopathy, cervical region; E11.9 Type 2 diabetes mellitus without complications; Z95.810 Presence of automatic (implantable) cardiac defibrillator; Z88.8 Allergy status to other drugs, medicaments and biological substances; Z79.82 Long term (current) use of aspirin; Z79.1 Long term (current) use of non-steroidal anti-inflammatories (NSAID); Z79.4 Long term (current) use of insulin; Z79.899 Other long term (current) drug therapy; Z78.1 Physical restraint status; Z83.3 Family history of diabetes mellitus; Z82.49 Family history of ischemic heart disease and other diseases of the circulatory system; Z98.1 Arthrodesis status; Z79.84 Long term (current) use of oral hypoglycemic drugs; Z71.3 Dietary counseling and surveillance
CPT/HCPCS: 36415; 36600; 71045; 72040; 76000; 80048; 80053; 81003; 82375; 82805; 82962; 85025; 86850; 86900; 88304; 88311; 92610; 93005; 94003; 94660; 95863; 95925; 95926; 95928; 95929; 95940; 97116; 97163; 97166; 97530; 97535; C1713; J0690; J1100; J1170; J1200; J1815; J1940; J2250; J2270; J2405; J2704; J2710; J3010; J3490; J7050; J7121

== ENCOUNTER 2020-01-30 20:57 | Inpatient (IN) | payer MEDICARE, MEDICAID ==
[~2020-01-30] VITALS: Ht 182.9 cm; Wt 136.1 kg
[~2020-01-30 20:57] MED LIST changes: +DULA1.5P SQ; -FAMO40TA70 PO; +FURO20TA4 PO; +GLIM2TAB30 PO; -GLIP10TA3; +HYDR-4135 PO; +INSHUMSS SUBCUT; -INSU100C3 SQ; -LINA5TAB PO; -NEBI5TAB3 PO; -P20 PO; -SITA1TAB8 PO
[2020-01-30 21:00] VITALS: BP 148/91
[2020-01-30 21:30] VITALS: BP 148/91
[2020-01-30] MEDS ORDERED: MORPHINE SULFATE 2 MG/ML CPJ (NOT FOR IM USE) IV PRN (22:00)
[2020-01-30] MEDS ORDERED: DEXTROSE 50% WATER 50ML SYRINGE IV PRN (22:00)
[2020-01-30] MEDS ORDERED: ONDANSETRON HCL 4MG/2ML INJ IV PRN (22:00)
[2020-01-30] MEDS ORDERED: NALOXONE HCL 0.4 MG/ML 1ML VIAL IV PRN (22:00)
[2020-01-30] MEDS: CARVEDILOL 6.25 MG TABLET PO SCH (22:39)
[2020-01-30] MEDS: AMLODIPINE 5MG TABLET PO SCH (22:39)
[2020-01-30] MEDS: BLOOD SUGAR DIAGNOSTIC STRIP TEST SCH (22:40)
[2020-01-30] MEDS: DIPHENHYDRAMINE 50MG/ML VIAL IV PRN (23:20)
[2020-01-30] MEDS: HYDRALAZINE HCL 50MG TABLET PO SCH (23:22)
[2020-01-30] MEDS: INSULIN LISPRO 100 UNITS/ML SUBCUT SCH (23:32)
[2020-01-30] MEDS: INSULIN GLARGINE UD 100 UNITS/ML SYR SUBCUT SCH (23:33)
[2020-01-30] MEDS: HYDROCODONE/ACETAMINOPHEN 5/325MG TABLET PO PRN (23:34)
[2020-01-31] MEDS: HYDROCODONE/ACETAMINOPHEN 5/325MG TABLET PO PRN ×2 (05:06→20:16)
[2020-01-31] MEDS: HYDRALAZINE HCL 50MG TABLET PO SCH ×3 (06:21→21:06)
[2020-01-31] MEDS: BLOOD SUGAR DIAGNOSTIC STRIP TEST SCH ×4 (06:22→20:56)
[2020-01-31] MEDS: INSULIN LISPRO 100 UNITS/ML SUBCUT SCH ×6 (06:37→21:02)
[2020-01-31 06:45] LABS: BASOPHILS % 0.1 % (0.0-2.0); EOSINOPHILS % 0.5 % (0.0-5.0); HEMATOCRIT. 47.1 % (42.0-52.0); HEMOGLOBIN. 15.6 g/dL (14.0-18.0); LYMPHOCYTES % 24.8 % (20.0-50.0); MEAN CORPUSCULAR HEMOGLOBIN 28.5 pg (28.0-32.0); MEAN CORPUSCULAR VOLUME 86.3 fL (80.0-94.0); MEAN PLATELET VOLUME 8.8 fl (7.4-10.4); MONOCYTES % 9.7 % (2.0-8.0); NEUTROPHILS % 64.9 % (40.0-76.0); PLATELET 191 x1000/uL (130-400); RED BLOOD CELL COUNT 5.46 mill/uL (4.7-6.1); RED CELL DISTRIBUTION WIDTH 15.6 % (11.6-14.6)
[2020-01-31 06:51] LABS: CHLORIDE 101 mEq/L (98-107)
[2020-01-31 08:20] VITALS: BP 134/67
[2020-01-31] MEDS: POTASSIUM CHLORIDE 20MEQ TABLET SR PO SCH (10:29)
[2020-01-31] MEDS: DOCUSATE SODIUM 100MG CAPSULE PO SCH ×2 (10:29→17:45)
[2020-01-31] MEDS: CARVEDILOL 6.25 MG TABLET PO SCH ×2 (10:29→20:34)
[2020-01-31] MEDS: AMLODIPINE 5MG TABLET PO SCH ×2 (10:29→20:16)
[2020-01-31] MEDS: FUROSEMIDE 40MG TABLET PO SCH ×2 (10:29→17:45)
[2020-01-31] MEDS: INSULIN GLARGINE UD 100 UNITS/ML SYR SUBCUT SCH ×2 (10:33→21:37)
[2020-01-31] MEDS ORDERED: BISACODYL 10MG SUPP PR PRN (13:30)
[2020-01-31] MEDS: LIDOCAINE 5% PATCH TOP SCH (15:23)
[2020-01-31] MEDS: LACTULOSE 20G/30ML UDC PO SCH ×2 (15:26→19:26)
[2020-01-31 20:00] VITALS: BP 148/73
[2020-01-31] MEDS: POLYETHYLENE GLYCOL 3350 (17GM) 1 DOSE PACK PO SCH ×2 (21:00→21:36)
[2020-01-31] MEDS: DIPHENHYDRAMINE 50MG/ML VIAL IV PRN (21:36)
[2020-02-01] MEDS: LACTULOSE 20G/30ML UDC PO SCH
[2020-02-01] MEDS: HYDRALAZINE HCL 50MG TABLET PO SCH ×3 (05:31→23:00)
[2020-02-01] MEDS: BLOOD SUGAR DIAGNOSTIC STRIP TEST SCH ×4 (05:35→22:00)
[2020-02-01] MEDS: INSULIN LISPRO 100 UNITS/ML SUBCUT SCH ×7 (07:01→22:17)
[2020-02-01 08:05] VITALS: BP 152/80
[2020-02-01] MEDS: CARVEDILOL 6.25 MG TABLET PO SCH ×2 (09:04→22:02)
[2020-02-01] MEDS: DOCUSATE SODIUM 100MG CAPSULE PO SCH ×2 (09:04→17:45)
[2020-02-01] MEDS: POTASSIUM CHLORIDE 20MEQ TABLET SR PO SCH (09:04)
[2020-02-01] MEDS: FUROSEMIDE 40MG TABLET PO SCH ×2 (09:04→17:45)
[2020-02-01] MEDS: AMLODIPINE 5MG TABLET PO SCH ×2 (09:05→22:02)
[2020-02-01] MEDS: LIDOCAINE 5% PATCH TOP SCH (09:05)
[2020-02-01] MEDS ORDERED: INFLUENZA VIRUS VACCINE(AFLURIA) 0.5ML SYR IM ONE (10:00)
[2020-02-01] MEDS: INSULIN GLARGINE UD 100 UNITS/ML SYR SUBCUT SCH ×2 (10:54→22:19)
[2020-02-01] MEDS: HYDROCODONE/ACETAMINOPHEN 5/325MG TABLET PO PRN (20:29)
[2020-02-01] MEDS: POLYETHYLENE GLYCOL 3350 (17GM) 1 DOSE PACK PO SCH (22:02)
[2020-02-01] MEDS: DIPHENHYDRAMINE 50MG/ML VIAL IV PRN (22:05)
[2020-02-02] VITALS: BP 134/73
[2020-02-02] MEDS: HYDRALAZINE HCL 50MG TABLET PO SCH ×3 (06:35→22:00)
[2020-02-02] MEDS: BLOOD SUGAR DIAGNOSTIC STRIP TEST SCH ×4 (06:35→20:55)
[2020-02-02] MEDS: INSULIN LISPRO 100 UNITS/ML SUBCUT SCH ×7 (06:42→21:21)
[2020-02-02 06:43] LABS: BASOPHILS % 0.1 % (0.0-2.0); EOSINOPHILS % 0.9 % (0.0-5.0); HEMATOCRIT. 44.4 % (42.0-52.0); HEMOGLOBIN. 14.6 g/dL (14.0-18.0); LYMPHOCYTES % 19.7 % (20.0-50.0); MEAN CORPUSCULAR HEMOGLOBIN 28.5 pg (28.0-32.0); MEAN CORPUSCULAR VOLUME 86.4 fL (80.0-94.0); MEAN PLATELET VOLUME 8.9 fl (7.4-10.4); MONOCYTES % 7.3 % (2.0-8.0); PLATELET 168 x1000/uL (130-400); RED BLOOD CELL COUNT 5.14 mill/uL (4.7-6.1); RED CELL DISTRIBUTION WIDTH 15.6 % (11.6-14.6)
[2020-02-02 06:46] LABS: CHLORIDE 100 mEq/L (98-107)
[2020-02-02 06:59] LABS: PHOSPHORUS 3.4 mg/dL (2.5-4.9); TOTAL IRON BINDING CAPACITY 282 ug/dL (250-450)
[2020-02-02 07:10] LABS: FERRITIN 291 ng/mL (22-322)
[2020-02-02 07:27] LABS: VITAMIN B12 SERUM >2000 pg/mL pg/mL (211-911)
[2020-02-02 08:12] VITALS: BP 72/97
[2020-02-02] MEDS: FUROSEMIDE 40MG TABLET PO SCH ×2 (09:00→17:26)
[2020-02-02] MEDS: LIDOCAINE 5% PATCH TOP SCH (09:00)
[2020-02-02] MEDS: POTASSIUM CHLORIDE 20MEQ TABLET SR PO SCH (09:00)
[2020-02-02] MEDS: DOCUSATE SODIUM 100MG CAPSULE PO SCH ×2 (09:00→17:26)
[2020-02-02] MEDS: AMLODIPINE 5MG TABLET PO SCH ×2 (09:01→21:22)
[2020-02-02] MEDS: CARVEDILOL 6.25 MG TABLET PO SCH ×2 (09:01→21:22)
[2020-02-02] MEDS: INSULIN GLARGINE UD 100 UNITS/ML SYR SUBCUT SCH ×2 (10:59→21:20)
[2020-02-02] MEDS ORDERED: LACTULOSE 20G/30ML UDC PO SCH (14:37)
[2020-02-02 20:00] VITALS: BP_SYST 136; BP_SYST 146; BP_DIAS 74
[2020-02-02] MEDS: POLYETHYLENE GLYCOL 3350 (17GM) 1 DOSE PACK PO SCH (21:00)
[2020-02-03] MEDS: HYDROCODONE/ACETAMINOPHEN 5/325MG TABLET PO PRN (01:34)
[2020-02-03] MEDS: HYDRALAZINE HCL 50MG TABLET PO SCH ×3 (05:12→22:00)
[2020-02-03] MEDS: BLOOD SUGAR DIAGNOSTIC STRIP TEST SCH ×4 (06:04→21:54)
[2020-02-03] MEDS: INSULIN LISPRO 100 UNITS/ML SUBCUT SCH ×4 (06:14→17:28)
[2020-02-03 06:59] LABS: CHLORIDE 101 mEq/L (98-107)
[2020-02-03] MEDS ORDERED: GLIPIZIDE 5MG TABLET PO SCH (07:00)
[2020-02-03 08:17] VITALS: BP 125/78
[2020-02-03] MEDS: FUROSEMIDE 40MG TABLET PO SCH ×2 (08:33→17:26)
[2020-02-03] MEDS: POTASSIUM CHLORIDE 20MEQ TABLET SR PO SCH (08:33)
[2020-02-03] MEDS: AMLODIPINE 5MG TABLET PO SCH ×2 (08:33→21:55)
[2020-02-03] MEDS: CARVEDILOL 6.25 MG TABLET PO SCH ×2 (08:33→21:55)
[2020-02-03] MEDS: LIDOCAINE 5% PATCH TOP SCH (08:34)
[2020-02-03] MEDS: DOCUSATE SODIUM 100MG CAPSULE PO SCH ×2 (08:34→17:26)
[2020-02-03] MEDS: INSULIN GLARGINE UD 100 UNITS/ML SYR SUBCUT SCH ×2 (10:10→22:03)
[2020-02-03] MEDS: GLIPIZIDE 5MG TABLET PO SCH ×2 (10:41→17:26)
[2020-02-03] MEDS: LINAGLIPTIN 5MG TABLET PO SCH (12:29)
[2020-02-03] MEDS: INSULIN LISPRO (LOW DOSE) 100 UNITS/ML SUBCUT SCH ×2 (12:31→17:28)
[2020-02-03] MEDS ORDERED: INSULIN LISPRO 100 UNITS/ML SUBCUT SCH (13:00)
[2020-02-03] MEDS: GABAPENTIN 300MG CAPSULE PO SCH ×2 (13:18→21:53)
[2020-02-03] MEDS: BISACODYL 5MG TABLET PO PRN (18:06)
[2020-02-03 20:00] VITALS: BP 130/88
[2020-02-03] MEDS: POLYETHYLENE GLYCOL 3350 (17GM) 1 DOSE PACK PO SCH (21:53)
[2020-02-04 05:01] VITALS: BP 117/76
[2020-02-04] MEDS: HYDRALAZINE HCL 50MG TABLET PO SCH ×3 (05:32→22:00)
[2020-02-04] MEDS: GABAPENTIN 300MG CAPSULE PO SCH ×3 (05:43→21:20)
[2020-02-04] MEDS: BLOOD SUGAR DIAGNOSTIC STRIP TEST SCH ×4 (05:59→21:21)
[2020-02-04] MEDS: INSULIN LISPRO (LOW DOSE) 100 UNITS/ML SUBCUT SCH ×3 (06:15→16:53)
[2020-02-04] MEDS: INSULIN LISPRO 100 UNITS/ML SUBCUT SCH ×3 (06:16→16:54)
[2020-02-04 08:00] VITALS: BP 125/74
[2020-02-04 08:06] VITALS: BP 125/74
[2020-02-04] MEDS: POTASSIUM CHLORIDE 20MEQ TABLET SR PO SCH (08:17)
[2020-02-04] MEDS: CARVEDILOL 6.25 MG TABLET PO SCH ×2 (08:17→21:20)
[2020-02-04] MEDS: LINAGLIPTIN 5MG TABLET PO SCH (08:17)
[2020-02-04] MEDS: AMLODIPINE 5MG TABLET PO SCH ×2 (08:17→21:21)
[2020-02-04] MEDS: GLIPIZIDE 5MG TABLET PO SCH ×2 (08:17→16:50)
[2020-02-04] MEDS: FUROSEMIDE 40MG TABLET PO SCH ×2 (08:17→16:50)
[2020-02-04] MEDS: DOCUSATE SODIUM 100MG CAPSULE PO SCH ×2 (08:17→16:50)
[2020-02-04] MEDS: LIDOCAINE 5% PATCH TOP SCH (08:17)
[2020-02-04] MEDS: INSULIN GLARGINE UD 100 UNITS/ML SYR SUBCUT SCH (09:54)
[2020-02-04] MEDS: LACTULOSE 20G/30ML UDC PO PRN (18:18)
[2020-02-04 20:00] VITALS: BP 135/79
[2020-02-04] MEDS: POLYETHYLENE GLYCOL 3350 (17GM) 1 DOSE PACK PO SCH (21:21)
[2020-02-04] MEDS ORDERED: INSULIN GLARGINE UD 100 UNITS/ML SYR SUBCUT SCH (22:00)
[2020-02-05] MEDS ORDERED: HYDROCODONE/ACETAMINOPHEN 5/325MG TABLET PO PRN (02:30)
[2020-02-05] MEDS: HYDRALAZINE HCL 50MG TABLET PO SCH ×3 (05:41→22:37)
[2020-02-05 05:55] LABS: CHLORIDE 100 mEq/L (98-107)
[2020-02-05 05:59] LABS: PHOSPHORUS 3.8 mg/dL (2.5-4.9)
[2020-02-05] MEDS: BLOOD SUGAR DIAGNOSTIC STRIP TEST SCH ×5 (06:03→21:05)
[2020-02-05 06:09] LABS: 25-HYDROXY VITAMIN D3 8.4 ng/mL (.)
[2020-02-05] MEDS: GABAPENTIN 300MG CAPSULE PO SCH ×3 (06:13→22:37)
[2020-02-05] MEDS: INSULIN LISPRO 100 UNITS/ML SUBCUT SCH ×3 (06:16→16:22)
[2020-02-05] MEDS: INSULIN LISPRO (LOW DOSE) 100 UNITS/ML SUBCUT SCH ×3 (06:17→17:50)
[2020-02-05 06:21] LABS: HEMATOCRIT. 39.6 % (42.0-52.0); HEMOGLOBIN. 13.4 g/dL (14.0-18.0); MEAN CORPUSCULAR HEMOGLOBIN 29.1 pg (28.0-32.0); MEAN CORPUSCULAR VOLUME 86.2 fL (80.0-94.0); MEAN PLATELET VOLUME 8.5 fl (7.4-10.4); PLATELET 164 x1000/uL (130-400)
[2020-02-05 06:22] LABS: BASOPHILS % 0.3 % (0.0-2.0); EOSINOPHILS % 2.1 % (0.0-5.0); LYMPHOCYTES % 19.2 % (20.0-50.0); MONOCYTES % 9.4 % (2.0-8.0)
[2020-02-05 08:18] VITALS: BP 120/61
[2020-02-05] MEDS: FUROSEMIDE 40MG TABLET PO SCH (09:08)
[2020-02-05] MEDS: DOCUSATE SODIUM 100MG CAPSULE PO SCH ×2 (09:08→17:02)
[2020-02-05] MEDS: CARVEDILOL 6.25 MG TABLET PO SCH ×2 (09:09→21:05)
[2020-02-05] MEDS: GLIPIZIDE 5MG TABLET PO SCH ×2 (09:09→17:02)
[2020-02-05] MEDS: AMLODIPINE 5MG TABLET PO SCH ×2 (09:09→21:05)
[2020-02-05] MEDS: LINAGLIPTIN 5MG TABLET PO SCH (09:09)
[2020-02-05] MEDS: ZINC SULFATE 220 MG ( 50 ) CAPSULE PO SCH (09:09)
[2020-02-05] MEDS: LIDOCAINE 5% PATCH TOP SCH (09:13)
[2020-02-05] MEDS ORDERED: INSULIN GLARGINE UD 100 UNITS/ML SYR SUBCUT SCH (10:00)
[2020-02-05] MEDS ORDERED: ERGOCALCIFEROL 50000UNITS CAPSULE PO SCH (16:00)
[2020-02-05] MEDS ORDERED: INSULIN LISPRO 100 UNITS/ML SUBCUT NR (19:00)
[2020-02-05 20:00] VITALS: BP 141/72
[2020-02-05] MEDS: POLYETHYLENE GLYCOL 3350 (17GM) 1 DOSE PACK PO SCH (21:00)
[2020-02-05] MEDS: LACTULOSE 20G/30ML UDC PO PRN (21:04)
[2020-02-05] MEDS: ZOLPIDEM TARTRATE 5MG TABLET PO PRN (22:37)
[2020-02-05] MEDS: INSULIN GLARGINE UD 100 UNITS/ML SYR SUBCUT SCH (22:46)
[2020-02-06] MEDS: HYDRALAZINE HCL 50MG TABLET PO SCH ×3 (05:49→21:03)
[2020-02-06] MEDS: GABAPENTIN 300MG CAPSULE PO SCH ×3 (05:49→21:03)
[2020-02-06] MEDS: BISACODYL 5MG TABLET PO PRN ×2 (05:58→13:26)
[2020-02-06] MEDS: BLOOD SUGAR DIAGNOSTIC STRIP TEST SCH ×4 (06:59→21:02)
[2020-02-06] MEDS: INSULIN LISPRO (LOW DOSE) 100 UNITS/ML SUBCUT SCH ×3 (07:17→16:50)
[2020-02-06] MEDS: INSULIN LISPRO 100 UNITS/ML SUBCUT SCH ×3 (07:18→17:13)
[2020-02-06 07:53] VITALS: BP 123/67
[2020-02-06] MEDS: CARVEDILOL 6.25 MG TABLET PO SCH ×2 (08:35→21:01)
[2020-02-06] MEDS: LINAGLIPTIN 5MG TABLET PO SCH (08:35)
[2020-02-06] MEDS: AMLODIPINE 5MG TABLET PO SCH ×2 (08:35→21:02)
[2020-02-06] MEDS: GLIPIZIDE 5MG TABLET PO SCH ×2 (08:35→16:49)
[2020-02-06] MEDS: LIDOCAINE 5% PATCH TOP SCH (08:35)
[2020-02-06] MEDS: ZINC SULFATE 220 MG ( 50 ) CAPSULE PO SCH (08:35)
[2020-02-06] MEDS: DOCUSATE SODIUM 100MG CAPSULE PO SCH ×2 (08:35→16:49)
[2020-02-06] MEDS: FUROSEMIDE 40MG TABLET PO SCH (08:35)
[2020-02-06] MEDS: INSULIN GLARGINE UD 100 UNITS/ML SYR SUBCUT SCH ×2 (09:44→21:24)
[2020-02-06] MEDS ORDERED: SIMV-46 PO (11:31)
[2020-02-06] MEDS ORDERED: HYDR-4001 PO (11:31)
[2020-02-06] MEDS ORDERED: GABA-531 PO (11:31)
[2020-02-06] MEDS ORDERED: HYDR-4135 PO (11:31)
[2020-02-06] MEDS ORDERED: COR6 PO (11:31)
[2020-02-06] MEDS ORDERED: FURO40TA5 PO (11:31)
[2020-02-06 20:00] VITALS: BP_SYST 122; BP_DIAS 61; BP_DIAS 77
[2020-02-06] MEDS: POLYETHYLENE GLYCOL 3350 (17GM) 1 DOSE PACK PO SCH (21:00)
[2020-02-06] MEDS: GUAIFENESIN 600MG ER TABLET PO SCH (21:02)
[2020-02-06] MEDS: ZOLPIDEM TARTRATE 5MG TABLET PO PRN (21:24)
[2020-02-07] MEDS: BLOOD SUGAR DIAGNOSTIC STRIP TEST SCH ×5 (02:58→21:03)
[2020-02-07] MEDS: HYDRALAZINE HCL 50MG TABLET PO SCH ×3 (05:46→22:01)
[2020-02-07] MEDS: GABAPENTIN 300MG CAPSULE PO SCH ×3 (05:46→21:04)
[2020-02-07] MEDS: INSULIN LISPRO 100 UNITS/ML SUBCUT SCH ×4 (07:00→18:11)
[2020-02-07] MEDS: INSULIN LISPRO (LOW DOSE) 100 UNITS/ML SUBCUT SCH ×3 (07:00→17:00)
[2020-02-07 07:17] LABS: BASOPHILS % 0.3 % (0.0-2.0); EOSINOPHILS % 1.8 % (0.0-5.0); HEMATOCRIT. 39.7 % (42.0-52.0); HEMOGLOBIN. 13.4 g/dL (14.0-18.0); LYMPHOCYTES % 20.8 % (20.0-50.0); MEAN CORPUSCULAR HEMOGLOBIN 29.1 pg (28.0-32.0); MEAN PLATELET VOLUME 8.9 fl (7.4-10.4); MONOCYTES % 7.3 % (2.0-8.0); NEUTROPHILS % 69.8 % (40.0-76.0); PLATELET 169 x1000/uL (130-400); RED BLOOD CELL COUNT 4.62 mill/uL (4.7-6.1); RED CELL DISTRIBUTION WIDTH 15.2 % (11.6-14.6)
[2020-02-07 08:16] VITALS: BP 143/80
[2020-02-07 08:30] LABS: CHLORIDE 104 mEq/L (98-107)
[2020-02-07 08:37] LABS: PHOSPHORUS 3.8 mg/dL (2.5-4.9)
[2020-02-07] MEDS: DOCUSATE SODIUM 100MG CAPSULE PO SCH ×2 (09:00→17:00)
[2020-02-07] MEDS: FUROSEMIDE 40MG TABLET PO SCH (09:20)
[2020-02-07] MEDS: ZINC SULFATE 220 MG ( 50 ) CAPSULE PO SCH (09:20)
[2020-02-07] MEDS: CARVEDILOL 6.25 MG TABLET PO SCH ×2 (09:21→21:03)
[2020-02-07] MEDS: GLIPIZIDE 5MG TABLET PO SCH ×2 (09:21→17:01)
[2020-02-07] MEDS: GUAIFENESIN 600MG ER TABLET PO SCH ×2 (09:22→21:03)
[2020-02-07] MEDS: LINAGLIPTIN 5MG TABLET PO SCH (09:22)
[2020-02-07] MEDS: AMLODIPINE 5MG TABLET PO SCH ×2 (09:22→21:03)
[2020-02-07] MEDS: LIDOCAINE 5% PATCH TOP SCH (09:23)
[2020-02-07] MEDS: INSULIN GLARGINE UD 100 UNITS/ML SYR SUBCUT SCH ×2 (10:55→22:12)
[2020-02-07 20:00] VITALS: BP 146/66
[2020-02-07] MEDS: POLYETHYLENE GLYCOL 3350 (17GM) 1 DOSE PACK PO SCH (21:00)
[2020-02-07] MEDS: ZOLPIDEM TARTRATE 5MG TABLET PO PRN (22:01)
[2020-02-08] MEDS: BLOOD SUGAR DIAGNOSTIC STRIP TEST SCH ×3 (03:01→11:32)
[2020-02-08] MEDS: GABAPENTIN 300MG CAPSULE PO SCH ×2 (05:52→13:42)
[2020-02-08] MEDS: HYDRALAZINE HCL 50MG TABLET PO SCH ×2 (05:52→13:44)
[2020-02-08] MEDS: INSULIN LISPRO (LOW DOSE) 100 UNITS/ML SUBCUT SCH ×2 (07:48→12:38)
[2020-02-08] MEDS: INSULIN LISPRO 100 UNITS/ML SUBCUT SCH ×2 (07:49→12:39)
[2020-02-08 08:00] VITALS: BP 119/63
[2020-02-08] MEDS: LIDOCAINE 5% PATCH TOP SCH (08:48)
[2020-02-08] MEDS: GLIPIZIDE 5MG TABLET PO SCH (08:49)
[2020-02-08] MEDS: GUAIFENESIN 600MG ER TABLET PO SCH (08:49)
[2020-02-08] MEDS: ZINC SULFATE 220 MG ( 50 ) CAPSULE PO SCH (08:49)
[2020-02-08] MEDS: FUROSEMIDE 40MG TABLET PO SCH (08:49)
[2020-02-08] MEDS: DOCUSATE SODIUM 100MG CAPSULE PO SCH (08:49)
[2020-02-08] MEDS: CARVEDILOL 6.25 MG TABLET PO SCH (08:49)
[2020-02-08] MEDS: AMLODIPINE 5MG TABLET PO SCH (08:50)
[2020-02-08] MEDS: LINAGLIPTIN 5MG TABLET PO SCH (09:12)
[2020-02-08] MEDS: INSULIN GLARGINE UD 100 UNITS/ML SYR SUBCUT SCH (10:18)
[2020-02-08 10:32] VITALS: BP 119/63
== END 2020-02-08 14:27 | disposition home health service (06) | DRG 551 ==
PROVIDERS: ADMIT Physical Medicine & Rehabilitation Spinal Cord Injury Medicine; ATTEND Internal Medicine
DX: M48.02 Spinal stenosis, cervical region (principal); G82.50 Quadriplegia, unspecified; I50.23 Acute on chronic systolic (congestive) heart failure; I13.0 Hypertensive heart and chronic kidney disease with heart failure and stage 1 through stage 4 chronic kidney disease, or unspecified chronic kidney disease; N17.9 Acute kidney failure, unspecified; I42.0 Dilated cardiomyopathy; Z68.41 Body mass index [BMI] 40.0-44.9, adult; M47.12 Other spondylosis with myelopathy, cervical region; E11.22 Type 2 diabetes mellitus with diabetic chronic kidney disease; E11.65 Type 2 diabetes mellitus with hyperglycemia; E66.01 Morbid (severe) obesity due to excess calories; E78.5 Hyperlipidemia, unspecified; G47.33 Obstructive sleep apnea (adult) (pediatric); G89.4 Chronic pain syndrome; N18.9 Chronic kidney disease, unspecified; Z95.810 Presence of automatic (implantable) cardiac defibrillator; Z83.3 Family history of diabetes mellitus; Z82.0 Family history of epilepsy and other diseases of the nervous system; Z79.4 Long term (current) use of insulin; R13.10 Dysphagia, unspecified; I25.10 Atherosclerotic heart disease of native coronary artery without angina pectoris; M47.812 Spondylosis without myelopathy or radiculopathy, cervical region; D72.829 Elevated white blood cell count, unspecified; E55.9 Vitamin D deficiency, unspecified; E87.5 Hyperkalemia; Z88.8 Allergy status to other drugs, medicaments and biological substances; Z82.49 Family history of ischemic heart disease and other diseases of the circulatory system; Z71.3 Dietary counseling and surveillance; M47.22 Other spondylosis with radiculopathy, cervical region
CPT/HCPCS: 36415; 80048; 80053; 82306; 82607; 82728; 82746; 82962; 83036; 83540; 83550; 83735; 84100; 84134; 84443; 84681; 85025; 92523; 92610; 93970; 97110; 97112; 97116; 97162; 97167; 97530; 97535; J1200; J1815; L0172

== ENCOUNTER 2020-05-11 04:49 | Emergency (ER) | payer MEDICARE, MEDICAID ==
[~2020-05-11] VITALS: Ht 190.5 cm; Wt 146.0 kg
[~2020-05-11 04:49] MED LIST changes: +COR6 PO; -FURO20TA4 PO; +FURO40TA5 PO; +GABA-531 PO; +HYDR-4001 PO; -TRAM50TA3 PO
[2020-05-11] MEDS ORDERED: ONDANSETRON HCL 4MG/2ML INJ IV STA (06:44)
[2020-05-11] MEDS ORDERED: SODIUM CHLORIDE 0.9% 1,000 ML IV ONE (06:44)
[2020-05-11] MEDS ORDERED: MORPHINE SULFATE 4 MG/ML CPJ (NOT FOR IM USE) IV STA (06:44)
[2020-05-11 07:22] LABS: BASOPHILS % 0.6 % (0.0-2.0); EOSINOPHILS % 1.3 % (0.0-5.0); HEMATOCRIT. 42.9 % (42.0-52.0); HEMOGLOBIN. 14.6 g/dL (14.0-18.0); LYMPHOCYTES % 28.4 % (20.0-50.0); MEAN CORPUSCULAR HEMOGLOBIN 29.5 pg (28.0-32.0); MEAN CORPUSCULAR VOLUME 86.6 fL (80.0-94.0); MEAN PLATELET VOLUME 9.5 fl (7.4-10.4); MONOCYTES % 7.6 % (2.0-8.0); NEUTROPHILS % 62.1 % (40.0-76.0); PLATELET 203 x1000/uL (130-400); RED BLOOD CELL COUNT 4.96 mill/uL (4.7-6.1); RED CELL DISTRIBUTION WIDTH 15.2 % (11.6-14.6)
[2020-05-11 07:23] LABS: CHLORIDE 102 mEq/L (98-107)
[2020-05-11 09:00] VITALS: BP 146/73
[2020-05-11 09:29] LABS: CLARITY URINE CLEAR (CLEAR); COLOR URINE YELLOW (YELLOW); KETONES URINE 1+ (NEGATIVE); LEUKOCYTE ESTERASE URINE NEGATIVE (NEGATIVE); NITRITE URINE NEGATIVE (NEGATIVE); OCCULT BLOOD URINE NEGATIVE (NEGATIVE); PH URINE 7.5 (4.5-8.0); PROTEIN URINE 3+ (NEGATIVE); SPECIFIC GRAVITY URINE 1.019 (1.005-1.030)
== END 2020-05-11 10:27 | disposition home or self-care (01) ==
LOC: ER 04:49
DX: M54.89 Other dorsalgia (principal); M54.30 Sciatica, unspecified side; M17.11 Unilateral primary osteoarthritis, right knee; N28.89 Other specified disorders of kidney and ureter; E11.65 Type 2 diabetes mellitus with hyperglycemia; I10 Essential (primary) hypertension; I25.10 Atherosclerotic heart disease of native coronary artery without angina pectoris; Z98.1 Arthrodesis status; Z95.810 Presence of automatic (implantable) cardiac defibrillator; Z88.8 Allergy status to other drugs, medicaments and biological substances
CPT/HCPCS: 36415; 73560; 74176; 80053; 81003; 83605; 83690; 85025; 85610; 96374; 96375; 99285; J2270; J2405; J7030

== ENCOUNTER → 2020-05-15 | Outpatient (CLI) | payer MEDICARE, MEDICAID | END | disposition home or self-care (01) | LOC: MRI 11:30 | PROVIDERS: ATTEND Neurological Surgery | DX: M47.816 Spondylosis without myelopathy or radiculopathy, lumbar region (principal); M48.061 Spinal stenosis, lumbar region without neurogenic claudication | CPT/HCPCS: 72148 ==

== ENCOUNTER 2020-06-30 13:27 | Emergency (ER) | payer MEDICARE, MEDICAID ==
[~2020-06-30] VITALS: Ht 180.3 cm; Wt 75.0 kg
[2020-06-30] MEDS ORDERED: ACETAMINOPHEN 325MG TABLET PO STA (14:39)
[2020-06-30] MEDS ORDERED: KETOROLAC 30MG/ML VIAL IM STA (14:39)
[2020-06-30] MEDS ORDERED: ASPIRIN 81MG TABLET PO ONE (14:45)
[2020-06-30 16:23] LABS: BASOPHILS % 0.6 % (0.0-2.0); EOSINOPHILS % 1.2 % (0.0-5.0); HEMATOCRIT. 40.8 % (42.0-52.0); HEMOGLOBIN. 13.5 g/dL (14.0-18.0); MEAN CORPUSCULAR HEMOGLOBIN 28.4 pg (28.0-32.0); MEAN CORPUSCULAR VOLUME 85.8 fL (80.0-94.0); MEAN PLATELET VOLUME 7.9 fl (7.4-10.4); MONOCYTES % 7.7 % (2.0-8.0); NEUTROPHILS % 60.5 % (40.0-76.0); PLATELET 268 x1000/uL (130-400); RED BLOOD CELL COUNT 4.76 mill/uL (4.7-6.1); RED CELL DISTRIBUTION WIDTH 14.7 % (11.6-14.6)
[2020-06-30 16:27] LABS: CHLORIDE 103 mEq/L (98-107)
[2020-06-30] MEDS ORDERED: FUROSEMIDE 40MG/4ML VIAL IVP ONE (17:15)
[2020-06-30] MEDS: FUROSEMIDE 40MG TABLET PO NR ×2 (17:49→17:50)
[2020-06-30 17:53] VITALS: BP 144/87
== END 2020-06-30 17:53 | disposition home or self-care (01) ==
LOC: ER 13:27
DX: R06.02 Shortness of breath (principal); Z20.828 Contact with and (suspected) exposure to other viral communicable diseases; M79.605 Pain in left leg; T46.4X5A Adverse effect of angiotensin-converting-enzyme inhibitors, initial encounter; Z88.8 Allergy status to other drugs, medicaments and biological substances; Z79.899 Other long term (current) drug therapy; Z79.4 Long term (current) use of insulin
CPT/HCPCS: 36415; 71045; 80053; 83880; 84484; 85025; 87635; 96372; 99284; J1885

== ENCOUNTER → 2020-09-09 | Outpatient (CLI) | payer MEDICARE, MEDICAID | END | disposition home or self-care (01) | LOC: MRI 08:36 | PROVIDERS: ATTEND Neurological Surgery | DX: M51.36 Other intervertebral disc degeneration, lumbar region (principal); M51.26 Other intervertebral disc displacement, lumbar region; M71.38 Other bursal cyst, other site; M48.061 Spinal stenosis, lumbar region without neurogenic claudication; Z98.1 Arthrodesis status | CPT/HCPCS: 72148 ==

== ENCOUNTER → 2020-12-15 | Outpatient (CLI) | payer MEDICARE, MEDICAID ==
[~2020-12-15] MED LIST changes: -GABA-531 PO; +GABA-532 PO
== END | disposition home or self-care (01) ==
LOC: RAD 15:56
PROVIDERS: ATTEND Internal Medicine Nephrology
DX: Z01.812 Encounter for preprocedural laboratory examination (principal); I51.7 Cardiomegaly; Z95.810 Presence of automatic (implantable) cardiac defibrillator
CPT/HCPCS: 71046

== ENCOUNTER 2020-12-25 11:58 | Inpatient (IN) | payer MEDICARE, MEDICAID ==
[~2020-12-25] VITALS: Ht 185.4 cm; Wt 147.4 kg
[2020-12-25] VITALS (25 sets, daily range): BP systolic 44–156; BP diastolic 35–119
[~2020-12-25 11:58] MED LIST changes: +FURO20TA4 PO; -GABA-290 PO; +INSU100I28 SQ; -INSU3INS6 SUBCUT; +ROSU40TA PO; +TRAM50TA3 PO
[2020-12-25] MEDS ORDERED: SODIUM CHLORIDE 0.9% 1,000 ML IV SCH (12:00)
[2020-12-25] MEDS ORDERED: FENTANYL CITRATE/PF 50MCG/ML 2ML VIAL ONE ×3 (13:16→14:52)
[2020-12-25] MEDS ORDERED: ROCURONIUM BROMIDE 10MG/ML VIAL 5ML IV ONE ×2 (13:16→13:35)
[2020-12-25] MEDS ORDERED: SODIUM CHLORIDE 0.9% 10ML VIAL ONE (13:17)
[2020-12-25] MEDS ORDERED: EPHEDRINE SULFATE 50MG/ML VIAL ONE (13:17)
[2020-12-25] MEDS ORDERED: PHENYLEPHRINE HCL 10 MG/ML 1ML (IV VIAL) IV ONE (13:17)
[2020-12-25] MEDS ORDERED: SUCCINYLCHOLINE CHLORIDE 200MG/10ML IV ONE (13:17)
[2020-12-25] MEDS ORDERED: NEOSTIGMINE METHYLSULFATE 1MG/ML 10 ML VIAL ONE (13:17)
[2020-12-25] MEDS ORDERED: CEFAZOLIN SODIUM 1000MG/VIAL ONE (13:17)
[2020-12-25] MEDS ORDERED: MIDAZOLAM HCL 2 MG/2 ML VIAL ONE (13:17)
[2020-12-25] MEDS ORDERED: DEXAMETHASONE 4MG/ML 1ML VIAL ONE (13:17)
[2020-12-25] MEDS ORDERED: GLYCOPYRROLATE 0.2 MG/ML 2ML VIAL ONE (13:17)
[2020-12-25] MEDS ORDERED: PROPOFOL 200MG/20ML VIAL IV ONE (13:17)
[2020-12-25] MEDS ORDERED: METOCLOPRAMIDE HCL 10MG/2ML VIAL ONE (13:18)
[2020-12-25] MEDS ORDERED: ONDANSETRON HCL 4MG/2ML INJ ONE (13:18)
[2020-12-25] MEDS ORDERED: ONDANSETRON HCL 4MG/2ML INJ IV PRN (14:15)
[2020-12-25] MEDS ORDERED: HYDROCODONE/ACETAMINOPHEN 5/325MG TABLET PO PRN (14:15)
[2020-12-25 14:26] LABS: CHLORIDE 108 mEq/L (98-107)
[2020-12-25] MEDS ORDERED: DEXTROSE 50% WATER 50ML SYRINGE IV PRN (16:00)
[2020-12-25] MEDS ORDERED: BISACODYL 5MG TABLET PO PRN (16:00)
[2020-12-25] MEDS ORDERED: IPRATROPIUM/ALBUTEROL 0.5-3(2.5)MG/3ML NEB HHN PRN (16:00)
[2020-12-25] MEDS ORDERED: LABETALOL HCL 5MG/ML VIAL 20ML IV ONE (16:02)
[2020-12-25] MEDS: DEXT 5%/LACTATED RINGERS 1,000 ML IV SCH ×2 (16:41→21:54)
[2020-12-25] MEDS: NICARDIPINE 100 MG in SODIUM CHLORIDE 0.9% 60 ML IV PRN ×2 (16:41→22:28)
[2020-12-25] MEDS: MORPHINE SULFATE 4 MG/ML CPJ (NOT FOR IM USE) IV PRN (16:42)
[2020-12-25] MEDS ORDERED: DIPHENHYDRAMINE INJ IV PRN (16:45)
[2020-12-25] MEDS ORDERED: HYDROMORPHONE PCA 10MG/50ML IV PRN (16:45)
[2020-12-25] MEDS ORDERED: ONDANSETRON INJ IV PRN (16:45)
[2020-12-25] MEDS ORDERED: NALOXONE INJ IV PRN (16:45)
[2020-12-25] MEDS: PANTOPRAZOLE SODIUM 40 MG/VIAL IV SCH (16:45)
[2020-12-25] MEDS ORDERED: HYDRALAZINE 20MG/ML VIAL IV PRN (17:00)
[2020-12-25] MEDS: DOCUSATE SODIUM 100MG CAPSULE PO SCH (17:24)
[2020-12-25] MEDS: BLOOD SUGAR DIAGNOSTIC STRIP TEST SCH ×2 (17:30→21:53)
[2020-12-25] MEDS: INSULIN LISPRO 100 UNITS/ML SUBCUT SCH ×2 (17:35→21:53)
[2020-12-25] MEDS ORDERED: INFLUENZA VACCINE 05/PF 0.5 ML VIAL IM ONE (20:00)
[2020-12-25] MEDS ORDERED: PNEUMOCOCCAL 23-VAL P-SAC VAC 0.5 ML IM ONE (20:00)
[2020-12-25] MEDS: CEFAZOLIN 1000MG PREMIX 50 ML IV SCH (21:54)
[2020-12-25] MEDS ORDERED: CEFAZOLIN SODIUM 1000MG/VIAL IV SCH (22:00)
[2020-12-26] VITALS (101 sets, daily range): BP systolic 50–210; BP diastolic 35–209
[2020-12-26] MEDS: CEFAZOLIN 1000MG PREMIX 50 ML IV SCH ×3 (05:14→21:30)
[2020-12-26] MEDS: NICARDIPINE 100 MG in SODIUM CHLORIDE 0.9% 60 ML IV PRN ×3 (05:31→21:30)
[2020-12-26] MEDS: BLOOD SUGAR DIAGNOSTIC STRIP TEST SCH ×4 (07:40→21:22)
[2020-12-26] MEDS: INSULIN LISPRO 100 UNITS/ML SUBCUT SCH ×4 (07:54→21:33)
[2020-12-26] MEDS: DOCUSATE SODIUM 100MG CAPSULE PO SCH ×2 (08:12→17:41)
[2020-12-26] MEDS: PANTOPRAZOLE SODIUM 40 MG/VIAL IV SCH (08:12)
[2020-12-26 12:51] LABS: HEMATOCRIT 36.3 % (42.0-52.0); HEMOGLOBIN 11.6 g/dL (14.0-18.0); MEAN CORPUSCULAR HEMOGLOBIN 28.3 pg (28.0-32.0); MEAN CORPUSCULAR VOLUME 88.8 fL (80.0-94.0); PLATELET 139 x1000/uL (130-400); RED BLOOD CELL COUNT 4.09 mill/uL (4.7-6.1); RED CELL DISTRIBUTION WIDTH 15.1 % (11.6-14.6)
[2020-12-26] MEDS: DEXT 5%/LACTATED RINGERS 1,000 ML IV SCH ×2 (13:13→20:00)
[2020-12-26] MEDS: GABAPENTIN 300MG CAPSULE PO SCH ×2 (14:07→21:30)
[2020-12-26] MEDS: HYDRALAZINE HCL 50MG TABLET PO SCH ×2 (14:07→21:23)
[2020-12-26] MEDS: DICLOFENAC SODIUM 75MG DR (EC) TABLET PO SCH (17:42)
[2020-12-26] MEDS: CARVEDILOL 6.25 MG TABLET PO SCH (21:00)
[2020-12-26] MEDS: ATORVASTATIN CALCIUM 40MG TABLET PO SCH (21:30)
[2020-12-27] VITALS (95 sets, daily range): BP systolic 90–144; BP diastolic 38–96
[2020-12-27] MEDS: HYDRALAZINE HCL 50MG TABLET PO SCH ×3 (05:16→21:06)
[2020-12-27] MEDS: CEFAZOLIN 1000MG PREMIX 50 ML IV SCH ×3 (05:16→21:06)
[2020-12-27] MEDS: GABAPENTIN 300MG CAPSULE PO SCH ×3 (05:16→21:04)
[2020-12-27] MEDS: BLOOD SUGAR DIAGNOSTIC STRIP TEST SCH ×4 (08:10→21:06)
[2020-12-27] MEDS: INSULIN LISPRO 100 UNITS/ML SUBCUT SCH ×4 (08:18→21:16)
[2020-12-27] MEDS: FAMOTIDINE 20MG/2ML VIAL IV SCH ×2 (09:02→21:04)
[2020-12-27] MEDS: DOCUSATE SODIUM 100MG CAPSULE PO SCH ×2 (09:02→17:25)
[2020-12-27] MEDS: FUROSEMIDE 20MG TABLET PO SCH (09:02)
[2020-12-27] MEDS: GLIMEPIRIDE 2MG TABLET PO SCH ×2 (09:02→17:26)
[2020-12-27] MEDS: DICLOFENAC SODIUM 75MG DR (EC) TABLET PO SCH ×2 (09:02→17:25)
[2020-12-27] MEDS: CARVEDILOL 6.25 MG TABLET PO SCH ×2 (09:03→21:05)
[2020-12-27] MEDS: NICARDIPINE 100 MG in SODIUM CHLORIDE 0.9% 60 ML IV PRN (09:18)
[2020-12-27] MEDS ORDERED: INSULIN GLARGINE UD 100 UNITS/ML SYR SUBCUT SCH (10:00)
[2020-12-27] MEDS ORDERED: SODIUM CHLORIDE 0.9% 500 ML IV ONE (10:15)
[2020-12-27] MEDS: SODIUM CHLORIDE 0.9% 1,000 ML IV SCH ×2 (10:40→18:20)
[2020-12-27] MEDS: FLUTICASONE PROPIONATE 50MCG/SPRAY BOTTLE BOTHNSTRLS SCH (21:05)
[2020-12-27] MEDS: ATORVASTATIN CALCIUM 40MG TABLET PO SCH (21:05)
[2020-12-27] MEDS: INSULIN GLARGINE UD 100 UNITS/ML SYR SUBCUT SCH (22:05)
[2020-12-27] MEDS: MORPHINE SULFATE 4 MG/ML CPJ (NOT FOR IM USE) IV PRN (23:45)
[2020-12-28] VITALS (51 sets, daily range): BP systolic 112–167; BP diastolic 50–109
[2020-12-28] MEDS: SODIUM CHLORIDE 0.9% 1,000 ML IV SCH ×2 (00:27→10:18)
[2020-12-28] MEDS: GABAPENTIN 300MG CAPSULE PO SCH ×3 (05:35→23:19)
[2020-12-28] MEDS: HYDRALAZINE HCL 50MG TABLET PO SCH ×3 (05:35→23:19)
[2020-12-28 06:56] LABS: BASOPHILS % 0.1 % (0.0-2.0); EOSINOPHILS % 0.7 % (0.0-5.0); HEMOGLOBIN. 10.9 g/dL (14.0-18.0); LYMPHOCYTES % 11.9 % (20.0-50.0); MEAN CORPUSCULAR HEMOGLOBIN 28.7 pg (28.0-32.0); MEAN CORPUSCULAR VOLUME 86.9 fL (80.0-94.0); MEAN PLATELET VOLUME 8.8 fl (7.4-10.4); MONOCYTES % 10.1 % (2.0-8.0); NEUTROPHILS % 77.2 % (40.0-76.0); PLATELET 131 x1000/uL (130-400); RED CELL DISTRIBUTION WIDTH 15.2 % (11.6-14.6)
[2020-12-28 07:30] LABS: CHLORIDE 107 mEq/L (98-107)
[2020-12-28] MEDS: BLOOD SUGAR DIAGNOSTIC STRIP TEST SCH ×3 (07:30→21:13)
[2020-12-28] MEDS: INSULIN LISPRO 100 UNITS/ML SUBCUT SCH ×4 (08:00→21:21)
[2020-12-28] MEDS: GLIMEPIRIDE 2MG TABLET PO SCH ×2 (09:10→17:00)
[2020-12-28] MEDS: DICLOFENAC SODIUM 75MG DR (EC) TABLET PO SCH ×2 (09:10→17:56)
[2020-12-28] MEDS: FUROSEMIDE 20MG TABLET PO SCH (09:10)
[2020-12-28] MEDS: FAMOTIDINE 20MG/2ML VIAL IV SCH ×2 (09:10→21:19)
[2020-12-28] MEDS: DOCUSATE SODIUM 100MG CAPSULE PO SCH ×2 (09:10→17:56)
[2020-12-28] MEDS: FLUTICASONE PROPIONATE 50MCG/SPRAY BOTTLE BOTHNSTRLS SCH ×2 (09:11→21:20)
[2020-12-28] MEDS: CARVEDILOL 6.25 MG TABLET PO SCH ×2 (09:11→21:20)
[2020-12-28] MEDS: MORPHINE SULFATE 4 MG/ML CPJ (NOT FOR IM USE) IV PRN ×3 (09:31→21:39)
[2020-12-28] MEDS: INSULIN GLARGINE UD 100 UNITS/ML SYR SUBCUT SCH ×2 (10:11→23:20)
[2020-12-28] MEDS ORDERED: LACTULOSE 20G/30ML UDC PO NR (11:45)
[2020-12-28] MEDS ORDERED: POLYETHYLENE GLYCOL 3350 (17GM) 1 DOSE PACK PO SCH (21:00)
[2020-12-28] MEDS: ATORVASTATIN CALCIUM 40MG TABLET PO SCH (21:19)
[2020-12-29] VITALS: BP 105/54
[2020-12-29] MEDS ORDERED: HYDRALAZINE 5 MG in SODIUM CHLORIDE 0.9% 49.75 ML IV PRN (03:45)
[2020-12-29 04:00] VITALS: BP 107/50
[2020-12-29] MEDS: HYDRALAZINE HCL 50MG TABLET PO SCH ×2 (06:00→13:08)
[2020-12-29] MEDS: GABAPENTIN 300MG CAPSULE PO SCH ×2 (06:11→13:09)
[2020-12-29] MEDS: BLOOD SUGAR DIAGNOSTIC STRIP TEST SCH ×3 (06:26→18:07)
[2020-12-29] MEDS: INSULIN LISPRO 100 UNITS/ML SUBCUT SCH ×2 (07:50→13:13)
[2020-12-29 08:00] VITALS: BP 140/71
[2020-12-29] MEDS: GLIMEPIRIDE 2MG TABLET PO SCH ×2 (09:20→17:30)
[2020-12-29] MEDS: DICLOFENAC SODIUM 75MG DR (EC) TABLET PO SCH ×2 (09:20→17:30)
[2020-12-29] MEDS: DOCUSATE SODIUM 100MG CAPSULE PO SCH ×2 (09:20→17:30)
[2020-12-29] MEDS: CARVEDILOL 6.25 MG TABLET PO SCH (09:20)
[2020-12-29] MEDS: FUROSEMIDE 20MG TABLET PO SCH (09:21)
[2020-12-29] MEDS: FLUTICASONE PROPIONATE 50MCG/SPRAY BOTTLE BOTHNSTRLS SCH (09:21)
[2020-12-29] MEDS: FAMOTIDINE 20MG/2ML VIAL IV SCH (09:21)
[2020-12-29] MEDS: INSULIN GLARGINE UD 100 UNITS/ML SYR SUBCUT SCH (10:27)
[2020-12-29 12:00] VITALS: BP 136/68
[2020-12-29 16:00] VITALS: BP 114/59
[2020-12-29 17:34] VITALS: BP 114/59
[2020-12-29] MEDS ORDERED: INSULIN LISPRO 100 UNITS/ML SUBCUT SCH (17:50)
[2020-12-29] MEDS ORDERED: HYDROCODONE/ACETAMINOPHEN 5/325MG TABLET PO PRN (18:15)
== END 2020-12-29 18:24 | DRG 460 ==
LOC: OR 11:58 → 5EST 11:59 → 6EST 12-28 12:24
PROVIDERS: ADMIT Neurological Surgery; ATTEND Neurological Surgery
PROC: 0SG0071 Fusion of Lumbar Vertebral Joint with Autologous Tissue Substitute, Posterior Approach, Posterior Column, Open Approach (ICD-10-PCS; principal; 2020-12-29)
PROC: 01NB0ZZ Release Lumbar Nerve, Open Approach (ICD-10-PCS; 2020-12-29)
PROC: 4A11X4Z Monitoring of Peripheral Nervous Electrical Activity, External Approach (ICD-10-PCS; 2020-12-29)
PROC: 0SP00JZ Removal of Synthetic Substitute from Lumbar Vertebral Joint, Open Approach (ICD-10-PCS; 2020-12-29)
DX: M51.06 Intervertebral disc disorders with myelopathy, lumbar region (principal); I42.0 Dilated cardiomyopathy; I50.22 Chronic systolic (congestive) heart failure; Z68.41 Body mass index [BMI] 40.0-44.9, adult; M47.16 Other spondylosis with myelopathy, lumbar region; M48.061 Spinal stenosis, lumbar region without neurogenic claudication; D72.829 Elevated white blood cell count, unspecified; E66.01 Morbid (severe) obesity due to excess calories; E78.5 Hyperlipidemia, unspecified; G47.33 Obstructive sleep apnea (adult) (pediatric); G89.4 Chronic pain syndrome; I11.0 Hypertensive heart disease with heart failure; I44.7 Left bundle-branch block, unspecified; J44.9 Chronic obstructive pulmonary disease, unspecified; Z20.822 Contact with and (suspected) exposure to COVID-19; M43.10 Spondylolisthesis, site unspecified; S34.109S Unspecified injury to unspecified level of lumbar spinal cord, sequela; Z79.4 Long term (current) use of insulin; Z82.49 Family history of ischemic heart disease and other diseases of the circulatory system; Z83.3 Family history of diabetes mellitus; Z95.810 Presence of automatic (implantable) cardiac defibrillator; Z98.1 Arthrodesis status; Z88.8 Allergy status to other drugs, medicaments and biological substances; E11.65 Type 2 diabetes mellitus with hyperglycemia; Z71.3 Dietary counseling and surveillance
CPT/HCPCS: 36415; 71045; 72020; 76000; 80048; 82962; 85025; 85027; 86850; 86900; 87426; 88300; 88304; 88311; 95925; 95926; 95928; 95929; 97110; 97116; 97163; 97167; 97530; 97535; C1713; C9113; J0330; J0690; J1100; J1170; J1815; J2250; J2270; J2370; J2405; J2704; J2710; J2765; J3010; J3490; J7030; J7040; J7050; J7121; C1762

== ENCOUNTER 2020-12-29 18:30 | Inpatient (IN) | payer MEDICARE, MEDICAID ==
[~2020-12-29] VITALS: Ht 185.4 cm; Wt 142.0 kg
[~2020-12-29 18:30] MED LIST changes: -COR6 PO; -DIPH25CA83 PO; -FURO40TA5 PO; -HYDR-4001 PO; -SIMV-46 PO; -TRAM50TA3 PO
[2020-12-29 20:00] VITALS: BP 149/72
[2020-12-29] MEDS ORDERED: ONDANSETRON HCL 4MG/2ML INJ IV PRN (20:15)
[2020-12-29] MEDS ORDERED: IPRATROPIUM/ALBUTEROL 0.5-3(2.5)MG/3ML NEB HHN PRN (20:15)
[2020-12-29] MEDS ORDERED: BISACODYL 5MG TABLET PO PRN (20:15)
[2020-12-29] MEDS ORDERED: DEXTROSE 50% WATER 50ML SYRINGE IV PRN (20:30)
[2020-12-29] MEDS: CARVEDILOL 6.25 MG TABLET PO SCH (21:00)
[2020-12-29] MEDS: BLOOD SUGAR DIAGNOSTIC STRIP TEST SCH (21:00)
[2020-12-29] MEDS: INSULIN LISPRO 100 UNITS/ML SUBCUT SCH (21:00)
[2020-12-29] MEDS: INSULIN GLARGINE UD 100 UNITS/ML SYR SUBCUT SCH (22:00)
[2020-12-29] MEDS: ATORVASTATIN CALCIUM 40MG TABLET PO SCH (23:12)
[2020-12-29] MEDS: HYDRALAZINE HCL 50MG TABLET PO SCH (23:13)
[2020-12-29] MEDS: FLUTICASONE PROPIONATE 50MCG/SPRAY BOTTLE BOTHNSTRLS SCH (23:15)
[2020-12-29] MEDS: POLYETHYLENE GLYCOL 3350 (17GM) 1 DOSE PACK PO SCH (23:48)
[2020-12-29] MEDS: FAMOTIDINE 20MG/2ML VIAL IV SCH (23:49)
[2020-12-29] MEDS: GABAPENTIN 300MG CAPSULE PO SCH (23:51)
[2020-12-30] MEDS: HYDRALAZINE HCL 50MG TABLET PO SCH ×4 (05:47→22:10)
[2020-12-30] MEDS: GABAPENTIN 300MG CAPSULE PO SCH ×4 (05:51→22:10)
[2020-12-30] MEDS: BLOOD SUGAR DIAGNOSTIC STRIP TEST SCH ×4 (05:51→21:00)
[2020-12-30 08:00] VITALS: BP 144/78
[2020-12-30 08:15] LABS: BASOPHILS % 0.3 % (0.0-2.0); HEMATOCRIT. 34.4 % (42.0-52.0); HEMOGLOBIN. 11.2 g/dL (14.0-18.0); LYMPHOCYTES % 22.3 % (20.0-50.0); MEAN CORPUSCULAR HEMOGLOBIN 28.3 pg (28.0-32.0); MEAN CORPUSCULAR VOLUME 86.6 fL (80.0-94.0); MEAN PLATELET VOLUME 8.7 fl (7.4-10.4); MONOCYTES % 9.6 % (2.0-8.0); NEUTROPHILS % 57.8 % (40.0-76.0); PLATELET 142 x1000/uL (130-400); RED BLOOD CELL COUNT 3.97 mill/uL (4.7-6.1); RED CELL DISTRIBUTION WIDTH 15.2 % (11.6-14.6)
[2020-12-30 08:16] LABS: CHLORIDE 108 mEq/L (98-107)
[2020-12-30] MEDS: INSULIN LISPRO 100 UNITS/ML SUBCUT SCH ×4 (09:00→21:00)
[2020-12-30] MEDS: POLYETHYLENE GLYCOL 3350 (17GM) 1 DOSE PACK PO SCH (09:43)
[2020-12-30] MEDS: GLIMEPIRIDE 2MG TABLET PO SCH ×2 (09:44→16:14)
[2020-12-30] MEDS: FLUTICASONE PROPIONATE 50MCG/SPRAY BOTTLE BOTHNSTRLS SCH ×2 (09:44→22:17)
[2020-12-30] MEDS: FAMOTIDINE 20MG/2ML VIAL IV SCH ×3 (09:44→22:09)
[2020-12-30] MEDS: DOCUSATE SODIUM 100MG CAPSULE PO SCH ×2 (09:44→16:14)
[2020-12-30] MEDS: FUROSEMIDE 20MG TABLET PO SCH (09:44)
[2020-12-30] MEDS: DICLOFENAC SODIUM 75MG DR (EC) TABLET PO SCH ×2 (09:44→16:15)
[2020-12-30] MEDS: INSULIN GLARGINE UD 100 UNITS/ML SYR SUBCUT SCH ×2 (09:57→22:53)
[2020-12-30] MEDS: CARVEDILOL 6.25 MG TABLET PO SCH ×2 (11:40→22:17)
[2020-12-30] MEDS: HYDROCODONE/ACETAMINOPHEN 5/325MG TABLET PO PRN ×2 (16:04→23:17)
[2020-12-30 20:00] VITALS: BP 158/84
[2020-12-30] MEDS: ATORVASTATIN CALCIUM 40MG TABLET PO SCH ×2 (22:07→22:09)
[2020-12-31] MEDS: BLOOD SUGAR DIAGNOSTIC STRIP TEST SCH ×4 (05:59→21:28)
[2020-12-31] MEDS: INSULIN LISPRO 100 UNITS/ML SUBCUT SCH ×4 (06:00→21:00)
[2020-12-31 06:57] LABS: BASOPHILS % 0.3 % (0.0-2.0); HEMATOCRIT. 34.9 % (42.0-52.0); HEMOGLOBIN. 11.3 g/dL (14.0-18.0); LYMPHOCYTES % 25.4 % (20.0-50.0); MEAN CORPUSCULAR VOLUME 86.3 fL (80.0-94.0); MEAN PLATELET VOLUME 8.4 fl (7.4-10.4); MONOCYTES % 9.2 % (2.0-8.0); NEUTROPHILS % 55.1 % (40.0-76.0); PLATELET 171 x1000/uL (130-400); RED BLOOD CELL COUNT 4.04 mill/uL (4.7-6.1); RED CELL DISTRIBUTION WIDTH 15.4 % (11.6-14.6)
[2020-12-31 07:01] LABS: CHLORIDE 103 mEq/L (98-107)
[2020-12-31 07:07] LABS: TOTAL IRON BINDING CAPACITY 239 ug/dL (250-450)
[2020-12-31 07:26] LABS: FOLIC ACID (FOLATE) SERUM 8.5 ng/mL (>5.38)
[2020-12-31] MEDS: HYDROCODONE/ACETAMINOPHEN 5/325MG TABLET PO PRN ×3 (07:27→16:01)
[2020-12-31] MEDS: POLYETHYLENE GLYCOL 3350 (17GM) 1 DOSE PACK PO SCH (08:34)
[2020-12-31] MEDS: LACTULOSE 20G/30ML UDC PO SCH ×3 (08:34→16:01)
[2020-12-31] MEDS: DOCUSATE SODIUM 100MG CAPSULE PO SCH ×2 (08:35→16:01)
[2020-12-31] MEDS: FUROSEMIDE 20MG TABLET PO SCH (08:35)
[2020-12-31] MEDS: DICLOFENAC SODIUM 75MG DR (EC) TABLET PO SCH ×2 (08:35→16:01)
[2020-12-31] MEDS: GLIMEPIRIDE 2MG TABLET PO SCH ×2 (08:35→16:01)
[2020-12-31] MEDS: CARVEDILOL 6.25 MG TABLET PO SCH ×2 (08:35→21:25)
[2020-12-31] MEDS: FLUTICASONE PROPIONATE 50MCG/SPRAY BOTTLE BOTHNSTRLS SCH ×2 (09:44→21:24)
[2020-12-31] MEDS: INSULIN GLARGINE UD 100 UNITS/ML SYR SUBCUT SCH ×2 (09:56→22:45)
[2020-12-31] MEDS: GABAPENTIN 300MG CAPSULE PO SCH ×2 (13:21→21:25)
[2020-12-31] MEDS: HYDRALAZINE HCL 50MG TABLET PO SCH ×2 (13:21→21:25)
[2020-12-31] MEDS: FERROUS SULFATE 325MG TABLET PO SCH (17:19)
[2020-12-31] MEDS: FAMOTIDINE 20MG/2ML VIAL IV SCH (21:00)
[2020-12-31] MEDS ORDERED: NA PHOS,M-B/NA PHOS,DI-BA ENEMA 118ML PR NR (21:30)
[2020-12-31] MEDS: ATORVASTATIN CALCIUM 40MG TABLET PO SCH (21:39)
[2021-01-01 00:16] VITALS: BP 130/86
[2021-01-01] MEDS: HYDROCODONE/ACETAMINOPHEN 5/325MG TABLET PO PRN ×2 (04:16→14:08)
[2021-01-01] MEDS: GABAPENTIN 300MG CAPSULE PO SCH ×3 (06:23→21:17)
[2021-01-01] MEDS: HYDRALAZINE HCL 50MG TABLET PO SCH ×3 (06:24→21:17)
[2021-01-01] MEDS: BLOOD SUGAR DIAGNOSTIC STRIP TEST SCH ×4 (06:26→21:18)
[2021-01-01] MEDS: INSULIN LISPRO 100 UNITS/ML SUBCUT SCH ×4 (06:43→21:20)
[2021-01-01] MEDS: FUROSEMIDE 20MG TABLET PO SCH (08:56)
[2021-01-01] MEDS: POLYETHYLENE GLYCOL 3350 (17GM) 1 DOSE PACK PO SCH (08:56)
[2021-01-01] MEDS: GLIMEPIRIDE 2MG TABLET PO SCH ×2 (08:57→17:06)
[2021-01-01] MEDS: DICLOFENAC SODIUM 75MG DR (EC) TABLET PO SCH ×2 (08:57→17:06)
[2021-01-01] MEDS: ASCORBIC ACID 500 MG TABLET PO SCH (08:57)
[2021-01-01] MEDS: DOCUSATE SODIUM 100MG CAPSULE PO SCH ×2 (08:57→16:35)
[2021-01-01] MEDS: FERROUS SULFATE 325MG TABLET PO SCH ×3 (08:57→16:35)
[2021-01-01] MEDS: FLUTICASONE PROPIONATE 50MCG/SPRAY BOTTLE BOTHNSTRLS SCH ×2 (08:58→21:16)
[2021-01-01] MEDS: CARVEDILOL 6.25 MG TABLET PO SCH ×2 (09:00→21:18)
[2021-01-01 10:03] VITALS: BP 107/65
[2021-01-01] MEDS: INSULIN GLARGINE UD 100 UNITS/ML SYR SUBCUT SCH ×2 (10:18→21:20)
[2021-01-01] MEDS: FAMOTIDINE 20MG TABLET PO SCH ×2 (11:57→21:17)
[2021-01-01 20:00] VITALS: BP 107/48
[2021-01-01] MEDS: ATORVASTATIN CALCIUM 40MG TABLET PO SCH (21:17)
[2021-01-02] MEDS: HYDROCODONE/ACETAMINOPHEN 5/325MG TABLET PO PRN ×3 (02:42→19:48)
[2021-01-02] MEDS: HYDRALAZINE HCL 50MG TABLET PO SCH ×3 (06:00→21:51)
[2021-01-02] MEDS: GABAPENTIN 300MG CAPSULE PO SCH ×2 (06:00→13:00)
[2021-01-02] MEDS: BLOOD SUGAR DIAGNOSTIC STRIP TEST SCH ×4 (06:00→21:52)
[2021-01-02 06:36] LABS: BASOPHILS % 0.6 % (0.0-2.0); EOSINOPHILS % 7.1 % (0.0-5.0); HEMATOCRIT. 34.3 % (42.0-52.0); HEMOGLOBIN. 11.2 g/dL (14.0-18.0); LYMPHOCYTES % 28.5 % (20.0-50.0); MEAN CORPUSCULAR HEMOGLOBIN 28.2 pg (28.0-32.0); MEAN CORPUSCULAR VOLUME 86.7 fL (80.0-94.0); MEAN PLATELET VOLUME 8.5 fl (7.4-10.4); MONOCYTES % 9.3 % (2.0-8.0); NEUTROPHILS % 54.5 % (40.0-76.0); PLATELET 200 x1000/uL (130-400); RED BLOOD CELL COUNT 3.95 mill/uL (4.7-6.1); RED CELL DISTRIBUTION WIDTH 15.2 % (11.6-14.6)
[2021-01-02 06:52] LABS: CHLORIDE 103 mEq/L (98-107)
[2021-01-02 08:00] VITALS: BP 150/55
[2021-01-02] MEDS: INSULIN LISPRO 100 UNITS/ML SUBCUT SCH ×4 (08:21→22:04)
[2021-01-02] MEDS: FLUTICASONE PROPIONATE 50MCG/SPRAY BOTTLE BOTHNSTRLS SCH ×2 (08:35→21:51)
[2021-01-02] MEDS: DICLOFENAC SODIUM 75MG DR (EC) TABLET PO SCH (08:36)
[2021-01-02] MEDS: CARVEDILOL 6.25 MG TABLET PO SCH ×2 (08:36→21:52)
[2021-01-02] MEDS: FAMOTIDINE 20MG TABLET PO SCH ×2 (08:37→21:52)
[2021-01-02] MEDS: DOCUSATE SODIUM 100MG CAPSULE PO SCH ×2 (08:37→16:12)
[2021-01-02] MEDS: POLYETHYLENE GLYCOL 3350 (17GM) 1 DOSE PACK PO SCH (08:37)
[2021-01-02] MEDS: GLIMEPIRIDE 2MG TABLET PO SCH ×2 (08:37→16:13)
[2021-01-02] MEDS: FERROUS SULFATE 325MG TABLET PO SCH ×3 (08:37→16:12)
[2021-01-02] MEDS: ASCORBIC ACID 500 MG TABLET PO SCH (08:37)
[2021-01-02] MEDS: FUROSEMIDE 20MG TABLET PO SCH (08:46)
[2021-01-02] MEDS: INSULIN GLARGINE UD 100 UNITS/ML SYR SUBCUT SCH ×2 (10:08→22:04)
[2021-01-02] MEDS: OXYCODONE HCL 5MG TABLET PO SCH ×2 (16:04→22:00)
[2021-01-02 20:00] VITALS: BP 119/47
[2021-01-02] MEDS: ATORVASTATIN CALCIUM 40MG TABLET PO SCH (21:51)
[2021-01-02] MEDS: GABAPENTIN 400MG CAPSULE PO SCH (21:52)
[2021-01-03] MEDS: BLOOD SUGAR DIAGNOSTIC STRIP TEST SCH ×4 (05:47→21:57)
[2021-01-03] MEDS: GABAPENTIN 400MG CAPSULE PO SCH ×3 (05:47→21:52)
[2021-01-03] MEDS: INSULIN LISPRO 100 UNITS/ML SUBCUT SCH ×4 (05:47→21:00)
[2021-01-03] MEDS: HYDRALAZINE HCL 50MG TABLET PO SCH ×3 (05:48→21:51)
[2021-01-03] MEDS: OXYCODONE HCL 5MG TABLET PO SCH ×3 (05:49→21:53)
[2021-01-03] MEDS: FLUTICASONE PROPIONATE 50MCG/SPRAY BOTTLE BOTHNSTRLS SCH (08:51)
[2021-01-03] MEDS: POLYETHYLENE GLYCOL 3350 (17GM) 1 DOSE PACK PO SCH (08:52)
[2021-01-03] MEDS: ASCORBIC ACID 500 MG TABLET PO SCH (08:52)
[2021-01-03] MEDS: DOCUSATE SODIUM 100MG CAPSULE PO SCH ×2 (08:52→16:38)
[2021-01-03] MEDS: FUROSEMIDE 20MG TABLET PO SCH (08:53)
[2021-01-03] MEDS: GLIMEPIRIDE 2MG TABLET PO SCH ×2 (08:53→16:38)
[2021-01-03] MEDS: CARVEDILOL 6.25 MG TABLET PO SCH ×2 (08:53→21:51)
[2021-01-03] MEDS: FERROUS SULFATE 325MG TABLET PO SCH ×3 (08:53→16:38)
[2021-01-03] MEDS: FAMOTIDINE 20MG TABLET PO SCH ×2 (08:53→21:52)
[2021-01-03] MEDS: INSULIN GLARGINE UD 100 UNITS/ML SYR SUBCUT SCH ×2 (12:01→22:00)
[2021-01-03 20:00] VITALS: BP 139/54
[2021-01-03] MEDS: ATORVASTATIN CALCIUM 40MG TABLET PO SCH (21:52)
[2021-01-03] MEDS ORDERED: HYDROCODONE/ACETAMINOPHEN 5/325MG TABLET PO PRN (23:45)
[2021-01-04] MEDS: GABAPENTIN 400MG CAPSULE PO SCH ×3 (06:37→21:54)
[2021-01-04] MEDS: HYDRALAZINE HCL 50MG TABLET PO SCH ×3 (06:38→23:12)
[2021-01-04] MEDS: OXYCODONE HCL 5MG TABLET PO SCH ×3 (06:38→21:55)
[2021-01-04] MEDS: BLOOD SUGAR DIAGNOSTIC STRIP TEST SCH ×4 (06:39→21:00)
[2021-01-04] MEDS: CARVEDILOL 6.25 MG TABLET PO SCH ×2 (07:56→23:13)
[2021-01-04] MEDS: GLIMEPIRIDE 2MG TABLET PO SCH ×2 (07:56→16:43)
[2021-01-04] MEDS: FUROSEMIDE 20MG TABLET PO SCH (07:56)
[2021-01-04] MEDS: ASCORBIC ACID 500 MG TABLET PO SCH (07:57)
[2021-01-04] MEDS: DOCUSATE SODIUM 100MG CAPSULE PO SCH ×2 (07:57→16:43)
[2021-01-04] MEDS: FAMOTIDINE 20MG TABLET PO SCH ×2 (07:57→21:54)
[2021-01-04] MEDS: POLYETHYLENE GLYCOL 3350 (17GM) 1 DOSE PACK PO SCH ×2 (07:57→08:10)
[2021-01-04] MEDS: FERROUS SULFATE 325MG TABLET PO SCH ×3 (07:57→16:43)
[2021-01-04] MEDS: INSULIN LISPRO 100 UNITS/ML SUBCUT SCH ×4 (07:57→21:00)
[2021-01-04 08:07] VITALS: BP 127/65
[2021-01-04 08:43] LABS: BASOPHILS % 0.8 % (0.0-2.0); EOSINOPHILS % 5.8 % (0.0-5.0); LYMPHOCYTES % 31.2 % (20.0-50.0); MEAN CORPUSCULAR HEMOGLOBIN 27.9 pg (28.0-32.0); MEAN CORPUSCULAR VOLUME 85.9 fL (80.0-94.0); MEAN PLATELET VOLUME 8.4 fl (7.4-10.4); MONOCYTES % 8.7 % (2.0-8.0); NEUTROPHILS % 53.5 % (40.0-76.0); PLATELET 217 x1000/uL (130-400); RED BLOOD CELL COUNT 3.96 mill/uL (4.7-6.1)
[2021-01-04 09:14] LABS: CHLORIDE 103 mEq/L (98-107)
[2021-01-04] MEDS: INSULIN GLARGINE UD 100 UNITS/ML SYR SUBCUT SCH ×2 (11:07→22:00)
[2021-01-04 20:00] VITALS: BP 118/51
[2021-01-04] MEDS: ATORVASTATIN CALCIUM 40MG TABLET PO SCH (21:54)
[2021-01-04] MEDS: HYDROCODONE/ACETAMINOPHEN 5/325MG TABLET PO PRN (23:16)
[2021-01-05] MEDS: HYDRALAZINE HCL 50MG TABLET PO SCH ×3 (06:20→21:51)
[2021-01-05] MEDS: INSULIN LISPRO 100 UNITS/ML SUBCUT SCH ×4 (06:21→21:00)
[2021-01-05] MEDS: OXYCODONE HCL 5MG TABLET PO SCH ×3 (06:21→21:51)
[2021-01-05] MEDS: GABAPENTIN 400MG CAPSULE PO SCH ×3 (06:21→21:50)
[2021-01-05] MEDS: BLOOD SUGAR DIAGNOSTIC STRIP TEST SCH ×4 (06:21→21:51)
[2021-01-05 08:01] VITALS: BP 119/57
[2021-01-05] MEDS: POLYETHYLENE GLYCOL 3350 (17GM) 1 DOSE PACK PO SCH (09:46)
[2021-01-05] MEDS: FUROSEMIDE 20MG TABLET PO SCH (09:46)
[2021-01-05] MEDS: FAMOTIDINE 20MG TABLET PO SCH ×2 (09:47→21:51)
[2021-01-05] MEDS: DOCUSATE SODIUM 100MG CAPSULE PO SCH ×2 (09:47→17:15)
[2021-01-05] MEDS: FERROUS SULFATE 325MG TABLET PO SCH ×3 (09:47→17:15)
[2021-01-05] MEDS: ASCORBIC ACID 500 MG TABLET PO SCH (09:47)
[2021-01-05] MEDS: CARVEDILOL 6.25 MG TABLET PO SCH ×2 (09:47→21:51)
[2021-01-05] MEDS: GLIMEPIRIDE 2MG TABLET PO SCH ×2 (09:47→17:15)
[2021-01-05] MEDS: INSULIN GLARGINE UD 100 UNITS/ML SYR SUBCUT SCH ×2 (10:01→22:20)
[2021-01-05 20:00] VITALS: BP 133/82
[2021-01-05] MEDS: ATORVASTATIN CALCIUM 40MG TABLET PO SCH (21:50)
[2021-01-06] MEDS: OXYCODONE HCL 5MG TABLET PO SCH ×3 (05:14→21:42)
[2021-01-06] MEDS: HYDRALAZINE HCL 50MG TABLET PO SCH ×3 (05:21→21:49)
[2021-01-06] MEDS: GABAPENTIN 400MG CAPSULE PO SCH ×3 (05:21→21:49)
[2021-01-06] MEDS: BLOOD SUGAR DIAGNOSTIC STRIP TEST SCH ×4 (05:24→21:00)
[2021-01-06] MEDS: INSULIN LISPRO 100 UNITS/ML SUBCUT SCH ×4 (07:08→22:42)
[2021-01-06 08:29] VITALS: BP 152/85
[2021-01-06] MEDS: GLIMEPIRIDE 2MG TABLET PO SCH ×2 (09:52→17:19)
[2021-01-06] MEDS: DOCUSATE SODIUM 100MG CAPSULE PO SCH ×2 (09:52→17:19)
[2021-01-06] MEDS: ASCORBIC ACID 500 MG TABLET PO SCH (09:52)
[2021-01-06] MEDS: FERROUS SULFATE 325MG TABLET PO SCH ×3 (09:53→17:19)
[2021-01-06] MEDS: FAMOTIDINE 20MG TABLET PO SCH ×3 (09:53→21:57)
[2021-01-06] MEDS: FUROSEMIDE 20MG TABLET PO SCH (09:53)
[2021-01-06] MEDS: POLYETHYLENE GLYCOL 3350 (17GM) 1 DOSE PACK PO SCH (09:53)
[2021-01-06] MEDS: CARVEDILOL 6.25 MG TABLET PO SCH ×2 (09:53→21:48)
[2021-01-06] MEDS: INSULIN GLARGINE UD 100 UNITS/ML SYR SUBCUT SCH ×2 (10:38→22:45)
[2021-01-06 20:00] VITALS: BP 98/85
[2021-01-06] MEDS: ATORVASTATIN CALCIUM 40MG TABLET PO SCH ×2 (21:48→21:58)
[2021-01-07] MEDS: HYDROCODONE/ACETAMINOPHEN 5/325MG TABLET PO PRN (02:15)
[2021-01-07] MEDS: HYDRALAZINE HCL 50MG TABLET PO SCH ×4 (06:45→21:55)
[2021-01-07] MEDS: GABAPENTIN 400MG CAPSULE PO SCH ×3 (06:45→21:56)
[2021-01-07] MEDS: OXYCODONE HCL 5MG TABLET PO SCH ×2 (06:46→14:12)
[2021-01-07] MEDS: BLOOD SUGAR DIAGNOSTIC STRIP TEST SCH ×4 (06:47→21:56)
[2021-01-07] MEDS: INSULIN LISPRO 100 UNITS/ML SUBCUT SCH ×4 (07:39→21:00)
[2021-01-07 07:56] LABS: BASOPHILS % 0.6 % (0.0-2.0); EOSINOPHILS % 4.7 % (0.0-5.0); HEMATOCRIT. 34.6 % (42.0-52.0); HEMOGLOBIN. 11.3 g/dL (14.0-18.0); LYMPHOCYTES % 26.6 % (20.0-50.0); MEAN CORPUSCULAR HEMOGLOBIN 28.1 pg (28.0-32.0); MEAN PLATELET VOLUME 8.3 fl (7.4-10.4); MONOCYTES % 8.1 % (2.0-8.0); PLATELET 246 x1000/uL (130-400); RED BLOOD CELL COUNT 4.02 mill/uL (4.7-6.1)
[2021-01-07 08:16] LABS: CHLORIDE 105 mEq/L (98-107)
[2021-01-07 08:30] VITALS: BP 116/50
[2021-01-07] MEDS: POLYETHYLENE GLYCOL 3350 (17GM) 1 DOSE PACK PO SCH (08:31)
[2021-01-07] MEDS: DOCUSATE SODIUM 100MG CAPSULE PO SCH ×2 (08:31→16:54)
[2021-01-07] MEDS: ASCORBIC ACID 500 MG TABLET PO SCH (08:31)
[2021-01-07] MEDS: GLIMEPIRIDE 2MG TABLET PO SCH ×2 (08:32→16:54)
[2021-01-07] MEDS: CARVEDILOL 6.25 MG TABLET PO SCH ×2 (08:32→21:00)
[2021-01-07] MEDS: FUROSEMIDE 20MG TABLET PO SCH (08:32)
[2021-01-07] MEDS: FERROUS SULFATE 325MG TABLET PO SCH ×3 (08:32→17:00)
[2021-01-07] MEDS: LACTULOSE 20G/30ML UDC PO SCH ×4 (10:18→21:00)
[2021-01-07] MEDS: INSULIN GLARGINE UD 100 UNITS/ML SYR SUBCUT SCH ×2 (10:27→21:59)
[2021-01-07 20:00] VITALS: BP 103/39
[2021-01-07] MEDS: FAMOTIDINE 20MG TABLET PO SCH (21:56)
[2021-01-07] MEDS: OXYCODONE HCL 5MG TABLET PO PRN (23:21)
[2021-01-08 06:00] VITALS: BP 125/67
[2021-01-08] MEDS: BLOOD SUGAR DIAGNOSTIC STRIP TEST SCH ×4 (06:21→20:09)
[2021-01-08] MEDS: INSULIN LISPRO 100 UNITS/ML SUBCUT SCH ×4 (06:21→20:09)
[2021-01-08] MEDS: HYDRALAZINE HCL 50MG TABLET PO SCH ×3 (06:23→21:02)
[2021-01-08] MEDS: GABAPENTIN 400MG CAPSULE PO SCH ×3 (06:26→21:02)
[2021-01-08 08:22] VITALS: BP 135/49
[2021-01-08] MEDS: CARVEDILOL 6.25 MG TABLET PO SCH ×2 (08:26→21:03)
[2021-01-08] MEDS: FUROSEMIDE 20MG TABLET PO SCH (08:26)
[2021-01-08] MEDS: HYDROCODONE/ACETAMINOPHEN 5/325MG TABLET PO PRN ×3 (08:28→23:31)
[2021-01-08] MEDS: FERROUS SULFATE 325MG TABLET PO SCH ×3 (08:29→16:14)
[2021-01-08] MEDS: ASCORBIC ACID 500 MG TABLET PO SCH (08:29)
[2021-01-08] MEDS: FAMOTIDINE 20MG TABLET PO SCH ×2 (08:29→21:03)
[2021-01-08] MEDS: GLIMEPIRIDE 2MG TABLET PO SCH ×2 (08:29→16:14)
[2021-01-08] MEDS: LACTULOSE 20G/30ML UDC PO SCH (08:31)
[2021-01-08] MEDS: DOCUSATE SODIUM 100MG CAPSULE PO SCH ×2 (08:32→16:15)
[2021-01-08] MEDS: POLYETHYLENE GLYCOL 3350 (17GM) 1 DOSE PACK PO SCH (08:32)
[2021-01-08 10:25] VITALS: BP 105/53
[2021-01-08] MEDS: OXYCODONE HCL 5MG TABLET PO PRN ×2 (10:26→18:56)
[2021-01-08] MEDS: INSULIN GLARGINE UD 100 UNITS/ML SYR SUBCUT SCH ×2 (10:31→20:09)
[2021-01-08 13:28] VITALS: BP 108/56
[2021-01-08 18:52] VITALS: BP 119/64
[2021-01-08] MEDS: ATORVASTATIN CALCIUM 40MG TABLET PO SCH (21:03)
[2021-01-09 05:33] LABS: CHLORIDE 104 mEq/L (98-107)
[2021-01-09] MEDS: GABAPENTIN 400MG CAPSULE PO SCH (05:55)
[2021-01-09] MEDS: HYDRALAZINE HCL 50MG TABLET PO SCH (05:56)
[2021-01-09] MEDS: BLOOD SUGAR DIAGNOSTIC STRIP TEST SCH (05:56)
[2021-01-09 05:58] LABS: BASOPHILS % 0.6 % (0.0-2.0); EOSINOPHILS % 5.2 % (0.0-5.0); HEMATOCRIT. 34.1 % (42.0-52.0); LYMPHOCYTES % 25.5 % (20.0-50.0); MEAN CORPUSCULAR HEMOGLOBIN 28.1 pg (28.0-32.0); MEAN CORPUSCULAR VOLUME 86.8 fL (80.0-94.0); MEAN PLATELET VOLUME 8.5 fl (7.4-10.4); MONOCYTES % 7.2 % (2.0-8.0); NEUTROPHILS % 61.5 % (40.0-76.0); PLATELET 266 x1000/uL (130-400); RED BLOOD CELL COUNT 3.93 mill/uL (4.7-6.1); RED CELL DISTRIBUTION WIDTH 15.1 % (11.6-14.6)
[2021-01-09] MEDS: HYDROCODONE/ACETAMINOPHEN 5/325MG TABLET PO PRN (07:29)
[2021-01-09 08:00] VITALS: BP 122/66
[2021-01-09] MEDS: INSULIN LISPRO 100 UNITS/ML SUBCUT SCH (09:00)
[2021-01-09] MEDS: FAMOTIDINE 20MG TABLET PO SCH (09:23)
[2021-01-09] MEDS: ASCORBIC ACID 500 MG TABLET PO SCH (09:23)
[2021-01-09] MEDS: DOCUSATE SODIUM 100MG CAPSULE PO SCH (09:23)
[2021-01-09] MEDS: CARVEDILOL 6.25 MG TABLET PO SCH (09:24)
[2021-01-09] MEDS: FERROUS SULFATE 325MG TABLET PO SCH (09:24)
[2021-01-09] MEDS: FUROSEMIDE 20MG TABLET PO SCH (09:24)
[2021-01-09] MEDS: GLIMEPIRIDE 2MG TABLET PO SCH (09:24)
[2021-01-09] MEDS: POLYETHYLENE GLYCOL 3350 (17GM) 1 DOSE PACK PO SCH (09:24)
[2021-01-09 09:58] VITALS: BP 122/66
[2021-01-09] MEDS: INSULIN GLARGINE UD 100 UNITS/ML SYR SUBCUT SCH (10:17)
[2021-01-09] MEDS ORDERED: CARV6.2548 PO (10:36)
[2021-01-09] MEDS ORDERED: GABA-532 PO (10:36)
[2021-01-09] MEDS ORDERED: DOCU-150 PO (10:36)
[2021-01-09] MEDS ORDERED: FURO20TA4 PO (10:36)
[2021-01-09] MEDS ORDERED: FERR325T23 PO (10:36)
[2021-01-09] MEDS ORDERED: ASCO500T20 PO (10:36)
[2021-01-09] MEDS ORDERED: DICL75TA5 PO (10:36)
[2021-01-09] MEDS ORDERED: ROSU40TA PO (10:36)
[2021-01-09] MEDS ORDERED: FAMO20TA8 PO (10:36)
[2021-01-09] MEDS ORDERED: INSU100I28 SQ (10:36)
[2021-01-09] MEDS ORDERED: HYDR-4135 PO (10:36)
[2021-01-09] MEDS ORDERED: GLIM2TAB30 PO (10:36)
[2021-01-12 13:07] LABS: 25-HYDROXY VITAMIN D3 5.1 ng/mL (.)
== END 2021-01-09 12:57 | disposition home health service (06) | DRG 551 ==
PROVIDERS: ADMIT Physical Medicine & Rehabilitation Spinal Cord Injury Medicine; ATTEND Internal Medicine Nephrology
DX: M48.061 Spinal stenosis, lumbar region without neurogenic claudication (principal); G82.50 Quadriplegia, unspecified; M47.16 Other spondylosis with myelopathy, lumbar region; I50.22 Chronic systolic (congestive) heart failure; I42.0 Dilated cardiomyopathy; Z68.41 Body mass index [BMI] 40.0-44.9, adult; M51.06 Intervertebral disc disorders with myelopathy, lumbar region; G47.33 Obstructive sleep apnea (adult) (pediatric); G89.4 Chronic pain syndrome; D72.829 Elevated white blood cell count, unspecified; I11.0 Hypertensive heart disease with heart failure; E66.01 Morbid (severe) obesity due to excess calories; E78.00 Pure hypercholesterolemia, unspecified; I44.7 Left bundle-branch block, unspecified; D64.9 Anemia, unspecified; R53.81 Other malaise; E11.40 Type 2 diabetes mellitus with diabetic neuropathy, unspecified; R26.89 Other abnormalities of gait and mobility; Z79.4 Long term (current) use of insulin; Z82.49 Family history of ischemic heart disease and other diseases of the circulatory system; Z83.3 Family history of diabetes mellitus; Z95.810 Presence of automatic (implantable) cardiac defibrillator; Z98.1 Arthrodesis status; Z79.899 Other long term (current) drug therapy; Z71.3 Dietary counseling and surveillance
CPT/HCPCS: 36415; 80048; 80053; 82306; 82607; 82728; 82746; 82962; 83036; 83540; 83550; 84134; 84443; 85025; 93970; 97110; 97112; 97116; 97162; 97166; 97530; 97535; J1815; J3490

== ENCOUNTER → 2021-03-26 | Outpatient (CLI) | payer MEDICARE, MEDICAID ==
[~2021-03-26] MED LIST changes: +ASCO500T20 PO; -ASPI-864; +DOCU-150 PO; -DULA1.5P SQ; +FAMO20TA8 PO; +FERR325T23 PO; -INSHUMSS SUBCUT
== END | disposition home or self-care (01) ==
LOC: LAB 15:02
PROVIDERS: ATTEND Neurological Surgery
DX: M51.86 Other intervertebral disc disorders, lumbar region (principal)
CPT/HCPCS: 72114

== ENCOUNTER → 2021-04-07 | Outpatient (CLI) | payer MEDICARE, MEDICAID | END | disposition home or self-care (01) | LOC: LAB 12:19 | PROVIDERS: ATTEND Internal Medicine Nephrology | DX: J44.9 Chronic obstructive pulmonary disease, unspecified (principal); R07.9 Chest pain, unspecified | CPT/HCPCS: 71045; 93005 ==

== ENCOUNTER 2021-06-28 16:45 | Inpatient (IN) | payer MEDICARE, MEDICAID ==
[~2021-06-28] VITALS: Ht 182.9 cm; Wt 142.9 kg
[~2021-06-28 16:45] MED LIST changes: +ASPI-1406 PO; +DORZ10DR12 EACHEYE; +INSU100I13 SQ; +LATA2.5D14 OP; +ROSU20TA2 PO
[2021-06-28] MEDS ORDERED: DEXTROSE 50% WATER 50ML SYRINGE IV ONE (17:15)
[2021-06-28 18:51] LABS: BASOPHILS % 0.4 % (0.0-2.0); EOSINOPHILS % 4.3 % (0.0-5.0); HEMATOCRIT. 40.2 % (42.0-52.0); HEMOGLOBIN. 13.2 g/dL (14.0-18.0); LYMPHOCYTES % 20.6 % (20.0-50.0); MEAN CORPUSCULAR HEMOGLOBIN 27.2 pg (28.0-32.0); MEAN PLATELET VOLUME 8.1 fl (7.4-10.4); MONOCYTES % 6.9 % (2.0-8.0); NEUTROPHILS % 67.8 % (40.0-76.0); PLATELET 205 x1000/uL (130-400); RED BLOOD CELL COUNT 4.85 mill/uL (4.7-6.1); RED CELL DISTRIBUTION WIDTH 16.7 % (11.6-14.6)
[2021-06-28 18:57] LABS: CHLORIDE 110 mEq/L (98-107)
[2021-06-28 19:04] LABS: ETHANOL BLOOD < 10 mg/dL
[2021-06-29] MEDS ORDERED: HYDROCODONE/ACETAMINOPHEN 5/325MG TABLET PO PRN (01:30)
[2021-06-29] MEDS ORDERED: DIPHENHYDRAMINE 50MG/ML VIAL IV PRN (01:30)
[2021-06-29] MEDS ORDERED: DEXTROSE 50% WATER 50ML SYRINGE IV PRN (01:30)
[2021-06-29] MEDS ORDERED: CLONIDINE 0.1MG TABLET PO PRN (01:30)
[2021-06-29] MEDS ORDERED: ACETAMINOPHEN 325MG TABLET PO PRN ×2 (01:30)
[2021-06-29] MEDS ORDERED: ONDANSETRON HCL 4MG/2ML INJ IV PRN (01:30)
[2021-06-29 01:36] LABS: CLARITY URINE CLEAR (CLEAR); COLOR URINE YELLOW (YELLOW); KETONES URINE NEGATIVE (NEGATIVE); LEUKOCYTE ESTERASE URINE NEGATIVE (NEGATIVE); NITRITE URINE NEGATIVE (NEGATIVE); OCCULT BLOOD URINE NEGATIVE (NEGATIVE); PH URINE 5.5 (4.5-8.0); PROTEIN URINE 2+ (NEGATIVE); SPECIFIC GRAVITY URINE 1.016 (1.005-1.030); UROBILINOGEN URINE 0.2 E.U./dL (0.2-1.0)
[2021-06-29 01:52] LABS: *AMPHETAMINES SCREEN URINE NEGATIVE (NEGATIVE); *BARBITURATES SCREEN URINE NEGATIVE (NEGATIVE); *BENZODIAZEPINES SCREEN URINE NEGATIVE (NEGATIVE); *COCAINE SCREEN URINE NEGATIVE (NEGATIVE); METHADONE URINE SCREEN NEGATIVE (NEGATIVE); OPIATES URINE SCREEN NEGATIVE (NEGATIVE)
[2021-06-29 01:53] LABS: CANNABINOID URINE SCREEN NEGATIVE (NEGATIVE); PHENCYCLIDINE URINE SCREEN NEGATIVE (NEGATIVE)
[2021-06-29] MEDS ORDERED: HYDRALAZINE HCL 100MG TABLET PO SCH (06:00)
[2021-06-29] MEDS ORDERED: GABAPENTIN 300MG CAPSULE PO SCH (06:00)
[2021-06-29] MEDS: SODIUM CHLORIDE 0.9% INJ 3ML FLUSH IVF SCH ×2 (06:16→13:21)
[2021-06-29] MEDS ORDERED: INSULIN LISPRO 100 UNITS/ML SUBCUT SCH (08:20)
[2021-06-29] MEDS ORDERED: NALOXONE HCL 0.4MG/ML VIAL IV PRN (08:30)
[2021-06-29] MEDS ORDERED: AMLODIPINE 5MG TABLET PO SCH (09:00)
[2021-06-29] MEDS ORDERED: CARVEDILOL 6.25 MG TABLET PO SCH (09:00)
[2021-06-29] MEDS ORDERED: BLOOD SUGAR DIAGNOSTIC STRIP TEST SCH (09:00)
[2021-06-29] MEDS ORDERED: INSULIN GLARGINE UD 100 UNITS/ML SYR SUBCUT SCH (10:00)
[2021-06-29 10:53] VITALS: BP 134/77
[2021-06-29 12:00] VITALS: BP 100/73
[2021-06-29 13:09] LABS: BASOPHILS % 0.6 % (0.0-2.0); EOSINOPHILS % 3.2 % (0.0-5.0); HEMATOCRIT. 40.7 % (42.0-52.0); HEMOGLOBIN. 12.9 g/dL (14.0-18.0); LYMPHOCYTES % 22.8 % (20.0-50.0); MEAN CORPUSCULAR HEMOGLOBIN 26.5 pg (28.0-32.0); MEAN CORPUSCULAR VOLUME 83.9 fL (80.0-94.0); MEAN PLATELET VOLUME 8.5 fl (7.4-10.4); NEUTROPHILS % 66.4 % (40.0-76.0); PLATELET 217 x1000/uL (130-400); RED BLOOD CELL COUNT 4.85 mill/uL (4.7-6.1); RED CELL DISTRIBUTION WIDTH 16.6 % (11.6-14.6)
[2021-06-29 13:17] LABS: CHLORIDE 106 mEq/L (98-107)
[2021-06-29 14:47] VITALS: BP 110/74
== END 2021-06-29 15:20 | disposition home or self-care (01) | DRG 637 ==
LOC: ER 16:45 → MICUSO 23:10 → 7EST 06-29 08:13
PROVIDERS: ADMIT Internal Medicine; ATTEND Internal Medicine
PROC: 4B02XTZ Measurement of Cardiac Defibrillator, External Approach (ICD-10-PCS; principal; 2021-06-29)
DX: E11.649 Type 2 diabetes mellitus with hypoglycemia without coma (principal); G93.41 Metabolic encephalopathy; I42.0 Dilated cardiomyopathy; I13.0 Hypertensive heart and chronic kidney disease with heart failure and stage 1 through stage 4 chronic kidney disease, or unspecified chronic kidney disease; J44.9 Chronic obstructive pulmonary disease, unspecified; I50.9 Heart failure, unspecified; G47.33 Obstructive sleep apnea (adult) (pediatric); I44.7 Left bundle-branch block, unspecified; K21.9 Gastro-esophageal reflux disease without esophagitis; N18.9 Chronic kidney disease, unspecified; E11.22 Type 2 diabetes mellitus with diabetic chronic kidney disease; Z79.899 Other long term (current) drug therapy; Z79.4 Long term (current) use of insulin; Z85.9 Personal history of malignant neoplasm, unspecified; Z79.82 Long term (current) use of aspirin; Z95.810 Presence of automatic (implantable) cardiac defibrillator; Z88.8 Allergy status to other drugs, medicaments and biological substances; Y92.89 Other specified places as the place of occurrence of the external cause; Z83.3 Family history of diabetes mellitus; Z90.5 Acquired absence of kidney
CPT/HCPCS: 36415; 71045; 80048; 80053; 80305; 80320; 81003; 82962; 83036; 83605; 84484; 85025; 93005; 99291; J1815; G0480

== ENCOUNTER 2021-08-27 16:39 | Emergency (ER) | payer MEDICARE, MEDICAID ==
[~2021-08-27] VITALS: Ht 182.9 cm; Wt 147.0 kg
[2021-08-27 16:40] VITALS: BP 141/74
[2021-08-27] MEDS ORDERED: NAPROXEN 375MG TABLET PO ONE (20:45)
[2021-08-27] MEDS ORDERED: NAPROXEN 250MG TABLET PO NR (20:55)
[2021-08-27] MEDS ORDERED: IBUP-2029 MT (21:25)
== END 2021-08-27 22:22 | disposition home or self-care (01) ==
LOC: ER 16:39
DX: M79.606 Pain in leg, unspecified (principal); Z59.00 Homelessness unspecified
CPT/HCPCS: 73560; 99283

== ENCOUNTER 2022-03-03 18:08 | Emergency (ER) | payer MEDICARE, MEDICAID ==
[~2022-03-03] VITALS: Ht 188 cm; Wt 134.0 kg
[~2022-03-03 18:08] MED LIST changes: -FURO20TA4 PO; +IBUP-2029 MT; -ROSU40TA PO
[2022-03-03] MEDS ORDERED: BRIM5DRO6 OP (18:20)
[2022-03-03] MEDS ORDERED: ONDANSETRON HCL 4MG/2ML INJ IV ONE (20:15)
[2022-03-03] MEDS ORDERED: SODIUM CHLORIDE 0.9% 1,000 ML IV ONE (20:15)
[2022-03-03 21:00] LABS: BASOPHILS % 0.7 % (0.0-2.0); EOSINOPHILS % 3.8 % (0.0-5.0); HEMATOCRIT. 36.1 % (42.0-52.0); HEMOGLOBIN. 11.8 g/dL (14.0-18.0); LYMPHOCYTES % 30.4 % (20.0-50.0); MEAN CORPUSCULAR HEMOGLOBIN 26.8 pg (28.0-32.0); MEAN CORPUSCULAR VOLUME 81.9 fL (80.0-94.0); MEAN PLATELET VOLUME 8.3 fl (7.4-10.4); MONOCYTES % 7.8 % (2.0-8.0); NEUTROPHILS % 57.3 % (40.0-76.0); PLATELET 165 x1000/uL (130-400); RED CELL DISTRIBUTION WIDTH 17.1 % (11.6-14.6)
[2022-03-03 21:08] LABS: CHLORIDE 104 mEq/L (98-107)
[2022-03-03 21:26] LABS: CLARITY URINE CLEAR (CLEAR); COLOR URINE YELLOW (YELLOW); KETONES URINE NEGATIVE (NEGATIVE); LEUKOCYTE ESTERASE URINE NEGATIVE (NEGATIVE); NITRITE URINE NEGATIVE (NEGATIVE); OCCULT BLOOD URINE NEGATIVE (NEGATIVE); PROTEIN URINE 2+ (NEGATIVE); SPECIFIC GRAVITY URINE 1.017 (1.005-1.030)
[2022-03-03] MEDS ORDERED: HYDROCODONE/ACETAMINOPHEN 5/325MG TABLET PO ONE (23:30)
[2022-03-04] MEDS ORDERED: HYDROCODONE/ACETAMINOPHEN 5/325MG TABLET PO SCH (02:30)
[2022-03-04] MEDS ORDERED: HYDRALAZINE HCL 50MG TABLET PO ONE (05:00)
[2022-03-04 13:07] VITALS: BP 160/89
== END 2022-03-04 13:14 | disposition home or self-care (01) ==
LOC: ER 18:08
DX: E86.0 Dehydration (principal); E11.22 Type 2 diabetes mellitus with diabetic chronic kidney disease; I12.9 Hypertensive chronic kidney disease with stage 1 through stage 4 chronic kidney disease, or unspecified chronic kidney disease; N18.9 Chronic kidney disease, unspecified; M54.50 Low back pain, unspecified; E78.00 Pure hypercholesterolemia, unspecified; J45.909 Unspecified asthma, uncomplicated; Z88.8 Allergy status to other drugs, medicaments and biological substances; Z79.899 Other long term (current) drug therapy; Z79.82 Long term (current) use of aspirin; Z98.890 Other specified postprocedural states
CPT/HCPCS: 36415; 73560; 80053; 81003; 83690; 84484; 85025; 93005; 96360; 96361; 99285; J7030

== ENCOUNTER 2022-05-06 15:06 | Emergency (ER) | payer MEDICARE, MEDICAID ==
[~2022-05-06] VITALS: Ht 182.9 cm; Wt 135.0 kg
[~2022-05-06 15:06] MED LIST changes: +BRIM5DRO6 OP
[2022-05-06 15:16] VITALS: BP 161/51
[2022-05-06] MEDS ORDERED: DOXY100C5 MT (18:32)
== END 2022-05-06 18:51 | disposition left against medical advice (07) ==
LOC: ER 15:06
DX: L97.929 Non-pressure chronic ulcer of unspecified part of left lower leg with unspecified severity (principal); J45.909 Unspecified asthma, uncomplicated; E78.00 Pure hypercholesterolemia, unspecified; J44.1 Chronic obstructive pulmonary disease with (acute) exacerbation; I11.0 Hypertensive heart disease with heart failure; I50.9 Heart failure, unspecified; Z79.899 Other long term (current) drug therapy; Z88.8 Allergy status to other drugs, medicaments and biological substances; Z88.6 Allergy status to analgesic agent; Z98.890 Other specified postprocedural states
CPT/HCPCS: 99281

== ENCOUNTER → 2022-07-19 | Outpatient (CLI) | payer MEDICARE, MEDICAID ==
[~2022-07-19] MED LIST changes: +DOXY100C5 MT
== END | disposition home or self-care (01) ==
LOC: MRI 08:34
PROVIDERS: ATTEND Specialist
DX: S46.911A Strain of unspecified muscle, fascia and tendon at shoulder and upper arm level, right arm, initial encounter (principal); M19.011 Primary osteoarthritis, right shoulder; M25.411 Effusion, right shoulder; X58.XXXA Exposure to other specified factors, initial encounter; Y93.89 Activity, other specified; Y92.89 Other specified places as the place of occurrence of the external cause; Y99.8 Other external cause status
CPT/HCPCS: 73221

== ENCOUNTER → 2022-08-02 | Day surgery (SDC) | payer MEDICARE, MEDICAID ==
[~2022-08-02] VITALS: Ht 185.4 cm; Wt 127.9 kg
[~2022-08-02] MED LIST changes: +BALANCED SALT IRRIG SOLN 15ML ONE; +BALANCED SALT IRRIG SOLN COMB1 500ML OP ONE; +CIPROFLOXACIN 0.3% OPHTH SOLN 2.5ML ONE; +CYCLOPENTOLATE HCL 1% OPHTH DROPS 2ML LEFTEYE NR; +DEXAMETHASONE 4MG/ML 1ML VIAL ONE; +DULA1.5P SQ; +FURO20TA4 PO; +HYALURONATE SODIUM 10 MG/ML 0.55ML SYRINGE IO ONE; +LIDOCAINE HCL/PF 2% 20 MG/ML 10ML VIAL ONE; +NEO/POLYMYX B SULF/DEXAMETH OPHTH OINT 3.5GM ONE; +ONDANSETRON HCL 4MG/2ML INJ ONE; +PHENYLEPHRINE HCL 10% OPHTH DROPS 5ML LEFTEYE NR; +POTA-205 PO; +PREDNISOLONE ACETATE 1% OPHTH DROPS 5ML ONE; +SODIUM CHLORIDE 0.9% 1,000 ML IV SCH; +TETRACAINE 0.5% OPHTH DROPS 4ML ONE; +TROPICAMIDE 1% OPHTH DROPS 15ML LEFTEYE NR
== END | disposition home or self-care (01) ==
LOC: OR 07:19
PROVIDERS: ATTEND Ophthalmology
DX: E11.36 Type 2 diabetes mellitus with diabetic cataract (principal); H25.89 Other age-related cataract; I12.9 Hypertensive chronic kidney disease with stage 1 through stage 4 chronic kidney disease, or unspecified chronic kidney disease; E11.22 Type 2 diabetes mellitus with diabetic chronic kidney disease; N18.9 Chronic kidney disease, unspecified; E78.5 Hyperlipidemia, unspecified; E66.01 Morbid (severe) obesity due to excess calories; J44.9 Chronic obstructive pulmonary disease, unspecified; Z79.82 Long term (current) use of aspirin; Z79.84 Long term (current) use of oral hypoglycemic drugs; Z79.899 Other long term (current) drug therapy; Z98.890 Other specified postprocedural states; Z20.822 Contact with and (suspected) exposure to COVID-19; Z72.89 Other problems related to lifestyle; Z88.8 Allergy status to other drugs, medicaments and biological substances
CPT/HCPCS: 66984; 82962; 87426; C9803; J1100; J2405; J3490; V2632

== ENCOUNTER → 2022-09-12 | Outpatient (CLI) | payer MEDICARE, MEDICAID ==
[~2022-09-12] MED LIST changes: -ASCO500T20 PO; -BALANCED SALT IRRIG SOLN 15ML ONE; -BALANCED SALT IRRIG SOLN COMB1 500ML OP ONE; -BRIM5DRO6 OP; -CIPROFLOXACIN 0.3% OPHTH SOLN 2.5ML ONE; -CYCLOPENTOLATE HCL 1% OPHTH DROPS 2ML LEFTEYE NR; -DEXAMETHASONE 4MG/ML 1ML VIAL ONE; -DOCU-150 PO; -DORZ10DR12 EACHEYE; -DOXY100C5 MT; -FERR325T23 PO; -GLIM2TAB30 PO; -HYALURONATE SODIUM 10 MG/ML 0.55ML SYRINGE IO ONE; -IBUP-2029 MT; -INSU100I13 SQ; -LATA2.5D14 OP; -LIDOCAINE HCL/PF 2% 20 MG/ML 10ML VIAL ONE; -NEO/POLYMYX B SULF/DEXAMETH OPHTH OINT 3.5GM ONE; -ONDANSETRON HCL 4MG/2ML INJ ONE; -PHENYLEPHRINE HCL 10% OPHTH DROPS 5ML LEFTEYE NR; -PREDNISOLONE ACETATE 1% OPHTH DROPS 5ML ONE; -SODIUM CHLORIDE 0.9% 1,000 ML IV SCH; -TETRACAINE 0.5% OPHTH DROPS 4ML ONE; -TROPICAMIDE 1% OPHTH DROPS 15ML LEFTEYE NR
== END | disposition home or self-care (01) ==
LOC: RAD 14:15
PROVIDERS: ATTEND Orthopaedic Surgery
DX: M25.511 Pain in right shoulder (principal)
CPT/HCPCS: 73030

== ENCOUNTER → 2023-10-05 | Outpatient (CLI) | payer MEDICARE, MEDICAID | END | disposition home or self-care (01) | LOC: RAD 11:34 | PROVIDERS: ATTEND Neurological Surgery | DX: M47.816 Spondylosis without myelopathy or radiculopathy, lumbar region (principal); M41.86 Other forms of scoliosis, lumbar region; M48.062 Spinal stenosis, lumbar region with neurogenic claudication | CPT/HCPCS: 72114 ==

== ENCOUNTER → 2023-10-11 | Outpatient (CLI) | payer MEDICARE, MEDICAID | END | disposition home or self-care (01) | LOC: CT 13:07 | PROVIDERS: ATTEND Neurological Surgery | DX: M43.26 Fusion of spine, lumbar region (principal); M48.061 Spinal stenosis, lumbar region without neurogenic claudication | CPT/HCPCS: 72131 ==

== ENCOUNTER 2024-06-08 15:27 | Inpatient (IN) | payer MEDICARE, MEDICAID ==
[~2024-06-08] VITALS: Ht 182.9 cm; Wt 115.3 kg
[~2024-06-08 15:27] MED LIST changes: +CARV12.545 PO; -CARV6.2548 PO; +CYCL5.5D OP; +DOCU-150 PO; -DULA1.5P SQ; +ERGO1250 PO; +GABA-290 PO; -GABA-532 PO; +GLIM2TAB30 PO; +HYDR-4001 PO; -HYDR-4135 PO; +HYDR50TA40 PO; +INSU100I13 SUBCUT; +SEMA2PEN SUBCUT; +TRAM50TA3 PO
[2024-06-08 16:26] LABS: BASOPHILS % 0.5 % (0.0-2.0); EOSINOPHILS % 0.8 % (0.0-5.0); HEMOGLOBIN. 10.7 g/dL (14.0-18.0); LYMPHOCYTES % 12.1 % (20.0-50.0); MEAN CORPUSCULAR HEMOGLOBIN 26.3 pg (28.0-32.0); MEAN CORPUSCULAR HGB CONC 32.3 g/dL (31.0-37.0); MEAN CORPUSCULAR VOLUME 81.2 fL (80.0-94.0); MEAN PLATELET VOLUME 7.1 fl (7.4-10.4); NEUTROPHILS % 80.6 % (40.0-76.0); PLATELET 301 x1000/uL (130-400); RED BLOOD CELL COUNT 4.07 mill/uL (4.7-6.1); RED CELL DISTRIBUTION WIDTH 16.5 % (11.6-14.6); WHITE BLOOD COUNT 11.2 x1000/uL (4.5-11.0)
[2024-06-08 16:32] LABS: CHLORIDE 102 mEq/L (98-107); SODIUM 137 mEq/L (136-145)
[2024-06-08 16:33] LABS: CALCIUM 9.1 mg/dL (8.7-10.4); CARBON DIOXIDE 28 mEq/L (21-32)
[2024-06-08 16:38] LABS: CREATININE 1.2 mg/dL (0.6-1.3); GLUCOSE 149 mg/dL (70-105); UREA NITROGEN BLOOD 13 mg/dL (9-23)
[2024-06-08 19:19] LABS: TROPONIN I HIGH SENSITIVITY 21 ng/L (3.0-53)
[2024-06-08] MEDS ORDERED: MAGNESIUM/ALUMINUM HYDROXIDE/SIMETHICONE 30ML UDC PO PRN (21:15)
[2024-06-08] MEDS ORDERED: ONDANSETRON HCL 4MG/2ML INJ IV PRN (21:15)
[2024-06-08] MEDS ORDERED: CLONIDINE 0.1MG TABLET PO PRN (21:15)
[2024-06-08] MEDS ORDERED: IPRATROPIUM/ALBUTEROL 0.5-3(2.5)MG/3ML NEB HHN PRN (21:15)
[2024-06-08] MEDS ORDERED: GUAIFENESIN 200MG/10ML SUGAR FREE UDC PO PRN (21:15)
[2024-06-08] MEDS ORDERED: DOCUSATE SODIUM 100MG CAPSULE PO PRN (21:15)
[2024-06-08] MEDS ORDERED: DEXTROSE 50% WATER 50ML SYRINGE IV PRN (21:15)
[2024-06-08] MEDS ORDERED: ACETAMINOPHEN 325MG TABLET PO PRN (21:15)
[2024-06-08 22:18] LABS: CLARITY URINE CLEAR (CLEAR); COLOR URINE YELLOW (YELLOW); GLUCOSE URINE NEGATIVE (NEGATIVE); KETONES URINE TRACE (NEGATIVE); LEUKOCYTE ESTERASE URINE NEGATIVE (NEGATIVE); NITRITE URINE NEGATIVE (NEGATIVE); OCCULT BLOOD URINE NEGATIVE (NEGATIVE); PH URINE 6.5 (4.5-8.0); PROTEIN URINE 2+ (NEGATIVE); SPECIFIC GRAVITY URINE 1.013 (1.005-1.030)
[2024-06-08 22:22] LABS: *AMPHETAMINES SCREEN URINE NEGATIVE (NEGATIVE); *BARBITURATES SCREEN URINE NEGATIVE (NEGATIVE); *BENZODIAZEPINES SCREEN URINE NEGATIVE (NEGATIVE); *COCAINE SCREEN URINE NEGATIVE (NEGATIVE); CANNABINOID URINE SCREEN NEGATIVE (NEGATIVE); METHADONE URINE SCREEN NEGATIVE (NEGATIVE); OPIATES URINE SCREEN NEGATIVE (NEGATIVE); PHENCYCLIDINE URINE SCREEN NEGATIVE (NEGATIVE)
[2024-06-08 22:30] LABS: BACTERIA URINE NONE SEEN; RBC URINE NONE SEEN /hpf (0-2); SQUAMOUS EPITHELIAL CELL URINE RARE /lpf (RARE/1+); WBC URINE NONE SEEN /hpf (0-2)
[2024-06-08 23:15] VITALS: BP 176/70; PULSE 75; RESP 18; TEMP 97.9
[2024-06-09] MEDS: ENOXAPARIN 40MG/0.4ML SYR SUBCUT SCH (00:32)
[2024-06-09] MEDS: PANTOPRAZOLE SODIUM 40 MG/VIAL IV SCH (00:32)
[2024-06-09] MEDS: ZOLPIDEM TARTRATE 5MG TABLET PO NR ×2 (00:32→20:45)
[2024-06-09] MEDS: FUROSEMIDE 40MG/4ML VIAL IVP NR (00:33)
[2024-06-09] MEDS: HYDRALAZINE HCL 25MG TABLET PO SCH ×2 (00:33→21:40)
[2024-06-09 04:00] VITALS: BP 157/95; PULSE 87; RESP 18; TEMP 97.9
[2024-06-09] MEDS: BLOOD SUGAR DIAGNOSTIC STRIP TEST SCH (07:40)
[2024-06-09 08:00] VITALS: BP 162/81; PULSE 82; RESP 18; TEMP 97.4
[2024-06-09 08:08] LABS: BASOPHILS % 0.2 % (0.0-2.0); EOSINOPHILS % 0.7 % (0.0-5.0); HEMATOCRIT. 33.8 % (42.0-52.0); LYMPHOCYTES % 11.6 % (20.0-50.0); MEAN CORPUSCULAR HEMOGLOBIN 26.5 pg (28.0-32.0); MEAN CORPUSCULAR HGB CONC 32.6 g/dL (31.0-37.0); MEAN CORPUSCULAR VOLUME 81.4 fL (80.0-94.0); MEAN PLATELET VOLUME 8.3 fl (7.4-10.4); NEUTROPHILS % 80.5 % (40.0-76.0); PLATELET 298 x1000/uL (130-400); RED BLOOD CELL COUNT 4.15 mill/uL (4.7-6.1); RED CELL DISTRIBUTION WIDTH 16.4 % (11.6-14.6); WHITE BLOOD COUNT 12.5 x1000/uL (4.5-11.0)
[2024-06-09] MEDS: INSULIN LISPRO 100 UNITS/ML SUBCUT SCH ×2 (08:10→12:24)
[2024-06-09 08:19] LABS: CHLORIDE 100 mEq/L (98-107); POTASSIUM 3.8 mEq/L (3.5-5.1); SODIUM 138 mEq/L (136-145)
[2024-06-09 08:20] LABS: CALCIUM 9.5 mg/dL (8.7-10.4); CARBON DIOXIDE 29 mEq/L (21-32)
[2024-06-09 08:25] LABS: CREATININE 1.1 mg/dL (0.6-1.3); GLUCOSE 118 mg/dL (70-105); TRIGLYCERIDE 64 mg/dL (0-150); UREA NITROGEN BLOOD 12 mg/dL (9-23)
[2024-06-09 08:26] LABS: ALBUMIN 3.9 g/dL (3.2-4.8); LDL CHOLESTEROL 54 mg/dL (5-100)
[2024-06-09 08:27] LABS: CHOLESTEROL 100 mg/dL (<200); HDL CHOLESTEROL 31 mg/dL (>55)
[2024-06-09 08:31] LABS: THYROID STIMULATING HORMONE 0.32 uIU/mL (0.55-4.78)
[2024-06-09] MEDS: ASCORBIC ACID 500 MG TABLET PO SCH (08:33)
[2024-06-09] MEDS: ZINC SULFATE 220 MG ( 50 ) CAPSULE PO SCH (08:33)
[2024-06-09] MEDS: ASPIRIN 81MG EC TABLET PO SCH (08:33)
[2024-06-09] MEDS: FUROSEMIDE 20MG TABLET PO SCH (08:33)
[2024-06-09] MEDS: POTASSIUM CHLORIDE 20MEQ TABLET SR PO SCH (08:33)
[2024-06-09] MEDS: CEFEPIME 2GM/100ML 100 ML IV SCH (08:44)
[2024-06-09] MEDS: VANCOMYCIN 1,750 MG in DEXT 5% WATER 500 ML IV SCH (09:21)
[2024-06-09 11:58] VITALS: BP 155/63; PULSE 80; RESP 18; TEMP 97.9
[2024-06-09 16:00] VITALS: BP 148/71; PULSE 78; RESP 18; TEMP 97.1
[2024-06-09] MEDS: AMLODIPINE 2.5MG TABLET PO SCH (16:36)
[2024-06-09 20:00] VITALS: BP 106/80; PULSE 80; RESP 18; TEMP 97.2
[2024-06-09] MEDS ORDERED: MEDICATION NOT ON FORMULARY EA (Rosuvastatin Calcium (Crestor) 20 MG) PO SCH (21:00)
[2024-06-09] MEDS: CARVEDILOL 3.125 MG TABLET PO SCH (21:39)
[2024-06-09] MEDS: ATORVASTATIN CALCIUM 40MG TABLET PO SCH (21:39)
[2024-06-09] MEDS: HYDROCODONE/ACETAMINOPHEN 5/325MG TABLET PO PRN (21:53)
[2024-06-09] MEDS ORDERED: NALOXONE HCL 0.4MG/ML VIAL IV PRN (22:00)
[2024-06-10] VITALS: BP 111/55; PULSE 80; RESP 18; TEMP 98
[2024-06-10] MEDS: VANCOMYCIN 1.25GM PMX (XELLIA) 250 ML IV SCH (02:51)
[2024-06-10 04:00] VITALS: BP 141/72; PULSE 67; RESP 20; TEMP 97.9
[2024-06-10 08:00] VITALS: BP 109/76; PULSE 75; RESP 18; TEMP 98.7
[2024-06-10] MEDS: FUROSEMIDE 40MG TABLET PO SCH (09:14)
[2024-06-10 10:23] LABS: HEMATOCRIT 34.1 % (42.0-52.0); HEMOGLOBIN 11.1 g/dL (14.0-18.0); MEAN CORPUSCULAR HEMOGLOBIN 26.3 pg (28.0-32.0); MEAN CORPUSCULAR HGB CONC 32.4 g/dL (31.0-37.0); MEAN CORPUSCULAR VOLUME 81.1 fL (80.0-94.0); PLATELET 283 x1000/uL (130-400); RED BLOOD CELL COUNT 4.21 mill/uL (4.7-6.1); RED CELL DISTRIBUTION WIDTH 16.5 % (11.6-14.6); WHITE BLOOD COUNT 10.2 x1000/uL (4.5-11.0)
[2024-06-10 10:51] LABS: CHLORIDE 100 mEq/L (98-107); POTASSIUM 4.1 mEq/L (3.5-5.1); SODIUM 136 mEq/L (136-145)
[2024-06-10 10:52] LABS: CALCIUM 8.6 mg/dL (8.7-10.4); CARBON DIOXIDE 29 mEq/L (21-32)
[2024-06-10 10:54] LABS: TROPONIN I HIGH SENSITIVITY 21 ng/L (3.0-53)
[2024-06-10 10:57] LABS: CREATININE 1.3 mg/dL (0.6-1.3); GLUCOSE 126 mg/dL (70-105); TRIGLYCERIDE 56 mg/dL (0-150); UREA NITROGEN BLOOD 14 mg/dL (9-23)
[2024-06-10 10:58] LABS: LDL CHOLESTEROL 53 mg/dL (5-100)
[2024-06-10 10:59] LABS: ALANINE AMINOTRANSFERASE 8 IU/L (10-49); ALBUMIN 3.5 g/dL (3.2-4.8); ASPARTATE AMINOTRANSFERASE 11 IU/L (<34); CHOLESTEROL 101 mg/dL (<200); HDL CHOLESTEROL 31 mg/dL (>55); THYROID STIMULATING HORMONE 0.48 uIU/mL (0.55-4.78)
[2024-06-10 11:00] LABS: BILIRUBIN TOTAL 0.5 mg/dL (0.1-1.0); PROTEIN TOTAL 7.2 g/dL (6.0-8.3)
[2024-06-10 12:00] VITALS: BP 145/76; PULSE 75; RESP 20; TEMP 97.9
[2024-06-10 16:00] VITALS: BP 141/78; PULSE 72; RESP 18; TEMP 98.9
[2024-06-10 20:00] VITALS: BP 115/62; PULSE 81; RESP 18; TEMP 97.5
[2024-06-10] MEDS: ZOLPIDEM TARTRATE 5MG TABLET PO NR (21:25)
[2024-06-11] VITALS (7 sets, daily range): BP systolic 112–148; BP diastolic 52–74; PULSE 72–82; RESP 18–20; TEMP 96–97.7; O2SAT 96
[2024-06-11] MEDS: ACETAMINOPHEN 325MG TABLET PO PRN (03:05)
[2024-06-11] MEDS: VANCOMYCIN 1.25GM PMX (XELLIA) 250 ML IV SCH (06:00)
[2024-06-11] MEDS: SORBITOL 70% SOLN 30ML PO NR (09:56)
[2024-06-11] MEDS: HYDRALAZINE HCL 25MG TABLET PO SCH (13:52)
[2024-06-11 15:46] LABS: T4 FREE 1.08 ng/dL (0.89-1.76)
[2024-06-11 15:47] LABS: THYROID STIMULATING HORMONE 0.42 uIU/mL (0.55-4.78)
[2024-06-11] MEDS ORDERED: COR6 PO (17:30)
[2024-06-11] MEDS ORDERED: ZINC1CAP2 PO (17:30)
[2024-06-11] MEDS ORDERED: HYDR25TA78 PO (17:30)
[2024-06-11] MEDS ORDERED: DOXY100T2 MT (17:33)
[2024-06-11] MEDS ORDERED: AMOX1TAB16 PO (17:33)
[2024-06-11] MEDS ORDERED: CARVEDILOL 6.25 MG TABLET PO SCH (21:00)
[2024-06-12] MEDS ORDERED: FAMOTIDINE 20MG/2ML VIAL IV SCH (09:00)
== END 2024-06-11 18:55 | disposition home health service (06) | DRG 291 ==
LOC: ER 15:27 → 7WST 19:04 → EDBEDREQ 19:07
PROVIDERS: ADMIT Internal Medicine; ATTEND Internal Medicine
DX: I11.0 Hypertensive heart disease with heart failure (principal); I50.43 Acute on chronic combined systolic (congestive) and diastolic (congestive) heart failure; E66.2 Morbid (severe) obesity with alveolar hypoventilation; L03.116 Cellulitis of left lower limb; E11.9 Type 2 diabetes mellitus without complications; Z20.822 Contact with and (suspected) exposure to COVID-19; D72.829 Elevated white blood cell count, unspecified; I25.10 Atherosclerotic heart disease of native coronary artery without angina pectoris; E78.00 Pure hypercholesterolemia, unspecified; L89.899 Pressure ulcer of other site, unspecified stage; D64.9 Anemia, unspecified; G89.4 Chronic pain syndrome; J44.89 Other specified chronic obstructive pulmonary disease; I87.8 Other specified disorders of veins; Z79.899 Other long term (current) drug therapy; Z90.5 Acquired absence of kidney; Z85.528 Personal history of other malignant neoplasm of kidney; Z79.82 Long term (current) use of aspirin; Z79.4 Long term (current) use of insulin; Z99.3 Dependence on wheelchair; Z98.1 Arthrodesis status; Z95.810 Presence of automatic (implantable) cardiac defibrillator; Z68.34 Body mass index [BMI] 34.0-34.9, adult; K29.00 Acute gastritis without bleeding; K52.9 Noninfective gastroenteritis and colitis, unspecified
CPT/HCPCS: 36415; 71045; 74018; 80048; 80053; 80061; 80202; 80305; 81003; 82040; 82533; 82962; 83036; 83520; 83605; 83735; 83880; 84145; 84439; 84443; 84481; 84484; 85025; 85027; 85379; 85651; 87426; 87804; 93005; 93306; 93970; 97166; 99285; J0692; J1650; J1815; J1940; J2470; J3370; J7060